=== PATIENT | male | born 1985 ===

== ENCOUNTER 2016-10-16 18:51 | Emergency (ER) | payer OTHER ==
[2016-10-16 19:31] VITALS: BP 133/73; PULSE 64; RESP 18; TEMP 96.6; O2SAT 99
[2016-10-16] MEDS ORDERED: DiphenhydrAMINE 50 mg/ml Inj IVP STA (19:51)
[2016-10-16] MEDS ORDERED: Sodium Chloride 0.9% 500 ML IV ONE (19:52)
--- NOTE | 2016-10-16 19:56 | ED PDOC ---
HPI: Headache Time Seen by Provider: 10/16/16 19:32 Chief Complaint (Nursing): Headache History Per: Patient History/Exam Limitations: no limitations Onset/Duration Of Symptoms: Gradual (today) Current Symptoms Are (Timing): Still Present Severity: Moderate Front/Back Head: 1 - frontal Quality: Dull Preceeding Symptoms: Known Migraine Symptoms Associated Symptoms: Nausea. denies: Photophobia, Blurred Vision, Vomiting, Extremity Weakness Additional History Per: Patient Additional Complaint(s): Patient had dizziness episode and lost balance today. Patient sent by [facility] for [facility]. patient has hx of stroke. Stroke discovered on MRI this year when being evaluated for headaches. pt took excedrin at 1300. Patient had botox tx for migraines 4 weeks ago. similar to migraines in the past. no head trauma. no f/c/ cp/sob or neck pain Past Medical History Reviewed: Historical Data, Nursing Documentation, Vital Signs Vital Signs: Last Vital Signs Temp 96.6 F L 10/16/16 19:27 Pulse 64 10/16/16 19:27 Resp 18 10/16/16 19:27 BP 133/73 10/16/16 19:27 Pulse Ox 99 10/16/16 19:27 - Medical History PMH: Anxiety, Migraine, TIA - Surgical History Surgical History: Appendectomy - Family History Family History: States: Unknown Family Hx - Living Arrangements Living Arrangements: With Family - Social History Drugs: Denies - Home Medications Home Medications: Ambulatory Orders Medication Instructions Recorded Cyclobenzaprine HCl [Flexeril] 10 mg PO Q8 #20 tab 10/31/14 Naproxen [Naprosyn] 500 mg PO BID #20 tab 10/31/14 - Allergies Allergies/Adverse Reactions: Allergies Allergy/AdvReac Type Severity Reaction Status Date / Time No Known Allergies Allergy Verified 10/31/14 13:51 Review of Systems ROS Statement: Except As Marked, All Systems Reviewed And Found Negative Constitutional: Negative for: Fever, Chills Eyes: Negative for: Vision Change, Conjunctivae Inflammation, Eyelid Inflammation Cardiovascular: Negative for: Chest Pain, Palpitations Respiratory: Negative for: Cough, Shortness of Breath Gastrointestinal: Negative for: Nausea, Vomiting, Abdominal Pain Musculoskeletal: Negative for: Neck Pain Skin: Negative for: Rash Neurological: Positive for: Headache. Negative for: Weakness, Numbness, Confusion, Seizures, Altered Mental Status, Dizziness Physical Exam - Reviewed Nursing Documentation Reviewed: Yes Vital Signs Reviewed: Yes - Physical Exam Appears: Positive for: No Acute Distress, Uncomfortable Head Exam: Positive for: ATRAUMATIC, NORMAL INSPECTION, NORMOCEPHALIC Eye Exam: Positive for: Normal appearance, EOMI, PERRL. Negative for: Nystagmus , Periorbital swelling, Periorbital tenderness, Conjunctival injection, Scleral icterus Neck: Positive for: Normal, Painless ROM, Supple Cardiovascular/Chest: Positive for: Regular Rate, Rhythm. Negative for: Chest Non Tender, Edema, Gallop, Murmur, Bradycardia, Tachycardia Respiratory: Positive for: Normal Breath Sounds. Negative for: Decreased Breath Sounds, Accessory Muscle Use, Crackles, Rales, Rhonchi, Stridor, Wheezing Gastrointestinal/Abdominal: Positive for: Normal Exam, Bowel Sounds, Soft. Negative for: Tenderness Back: Positive for: Normal Inspection. 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 Negative for: Motor/Sensory Deficits, Cerebellar Tests , Aphasia, Facial Droop - Laboratory Results Result Diagrams: 10/16/16 20:23 10/16/16 20:23 - ECG O2 Sat by Pulse Oximetry: 99 Pulse Ox Interpretation: Normal - Progress ED Course And Treament: ct head neg. sx markedly improved. advise close f/u with pmd. all of pt's questions were answered and pt agree's with plan. Re-evaluation Time: 22:04 Condition: Improved Disposition - Clinical Impression Clinical Impression: Migraine Counseled Patient/Family Regarding: Studies Performed, Diagnosis, Need For Followup - Disposition Disposition: Routine/Home Disposition Time: 22:05 Condition: GOOD Instructions: Migraine Headache (ED) Forms: [facility] ED School/Work Excuse
[2016-10-16] MEDS ORDERED: DiphenhydrAMINE 50 mg/ml Inj ONE (20:00)
[2016-10-16 20:33] LABS: BASO % 0.2 % (0.0-2.0); EOS # 0.1 K/uL (0.0-0.7); EOS % 0.8 % (0.0-4.0); HEMATOCRIT 40.5 % (35.0-51.0); LYMPH # 3.5 K/uL (1.0-4.3); LYMPH % 36.1 % (20.0-40.0); MEAN CELL VOLUME 85.7 fl (80.0-94.0); MEAN CORPUSCULAR HEMOGLOBIN 28.5 pg (27.0-31.0); MEAN CORPUSCULAR HGB CONC 33.3 g/dL (33.0-37.0); MONO # 0.8 K/uL (0.0-0.8); MONO % 8.7 % (0.0-10.0); NEUT # 5.3 K/uL (1.8-7.0); NEUT % 54.2 % (50.0-75.0); RED CELL DISTRIBUTION WIDTH 13.2 % (11.5-14.5); WHITE BLOOD COUNT 9.7 K/uL (4.8-10.8)
[2016-10-16 20:54] LABS: PARTIAL THROMBOPLASTIN TIME 27.5 SECONDS (23.3-32.5)
[2016-10-16 21:02] LABS: ALB/GLOB RATIO 1.3 (1.0-2.1); ALKALINE PHOSPHATASE 94 U/L (38-126); ALT/SGPT 34 U/L (21-72); AST/SGOT 29 U/L (17-59); BILIRUBIN,TOTAL 0.5 mg/dl (0.2-1.3); BLOOD UREA NITROGEN 15 mg/dl (9-20); CALCIUM 9.8 mg/dL (8.4-10.2); CARBON DIOXIDE 26 mmol/L (22-30); CHLORIDE 101 mmol/L (98-107); GFR AFRICAN-AMERICAN > 60; GLUCOSE,RANDOM 93 mg/dL (75-110); POTASSIUM 4.1 MMOL/L (3.6-5.0); SODIUM 144 mmol/l (132-148); TOTAL PROTEIN 8.3 G/DL (6.3-8.2)
--- NOTE | 2016-10-17 08:27 | CT ---
PROCEDURE: CT HEAD WITHOUT CONTRAST. HISTORY: Headache COMPARISON: 06/08/2010 TECHNIQUE: Axial computed tomography images were obtained through the head/brain without intravenous contrast. Radiation dose: Total exam DLP = 871.23 mGy-cm. This CT exam was performed using one or more of the following dose reduction techniques: Automated exposure control, adjustment of the mA and/or kV according to patient size, and/or use of iterative reconstruction technique. FINDINGS: HEMORRHAGE: No intracranial hemorrhage. BRAIN: There is no mass, mass effect or abnormal extra-axial fluid collection. There is no territorial infarction. VENTRICLES: There is mild global parenchymal volume loss with frontal predominance, advanced for the patient's age and proportionate enlargement of the ventricles and cortical sulci. CALVARIUM: The skull base and calvarium are normal PARANASAL SINUSES: Predominantly clear. MASTOID AIR CELLS: Predominantly clear. OTHER FINDINGS: None. IMPRESSION: No acute intracranial abnormality. Mild global parenchymal volume loss with frontal predominance, advanced for the patient's age. A preliminary report was provided by [email or web address].
== END 2016-10-16 22:21 | disposition home or self-care (01) ==
LOC: H.ER 18:51
DX: G43.909 Migraine, unspecified, not intractable, without status migrainosus (principal); Z86.73 Personal history of transient ischemic attack (TIA), and cerebral infarction without residual deficits

== ENCOUNTER 2017-10-28 08:30 | Observation (INO) | payer MEDICAID, OTHER ==
[2017-10-28] MEDS ORDERED: Sodium Chloride 0.9% 1,000 ML IV STA (09:38)
--- NOTE | 2017-10-28 09:45 | ED PDOC ---
HPI: Headache Time Seen by Provider: 10/28/17 09:23 Chief Complaint (Nursing): Headache Chief Complaint (Provider): Headache History Per: Patient History/Exam Limitations: no limitations Onset/Duration Of Symptoms: Days (x 3) Current Symptoms Are (Timing): Still Present Additional History Per: Prior Records Additional Complaint(s): 32-year-old male, with a history of migraines and a minor stroke, presents to ED with migraine that started 3 days ago. Patient states migraine worsens last night. Feels "extra pounding" on his right side of his head. States light bothers him. Reports vomiting all night. Reports taking excedrin. PMD: No PMD Neurologist: ? (in the city) Past Medical History Reviewed: Historical Data, Nursing Documentation, Vital Signs Vital Signs: Last Vital Signs Temp 98.6 F 10/28/17 08:51 Pulse 84 10/28/17 08:51 Resp 20 10/28/17 08:51 BP 117/78 10/28/17 08:51 Pulse Ox 97 10/28/17 08:51 - Medical History PMH: Anxiety, Migraine, TIA Other PMH: Minor stroke, meningitis - Surgical History Surgical History: Appendectomy - Family History Family History: States: Unknown Family Hx - Social History Current smoker - smoking cessation education provided: No Alcohol: None Drugs: Denies - Home Medications Home Medications: Ambulatory Orders Medication Instructions Recorded Naproxen [Naprosyn] 500 mg PO BID PRN #15 tablet 10/28/17 Ondansetron [Zofran Odt] 4 mg PO Q8H PRN #15 odt 10/28/17 - Allergies Allergies/Adverse Reactions: Allergies Allergy/AdvReac Type Severity Reaction Status Date / Time No Known Allergies Allergy Verified 10/28/17 08:49 Review of Systems ROS Statement: Except As Marked, All Systems Reviewed And Found Negative ENT: Positive for: Other (Photophobia) Gastrointestinal: Positive for: Vomiting Neurological: Positive for: Other (Migraine) Physical Exam - Reviewed Nursing Documentation Reviewed: Yes Vital Signs Reviewed: Yes - Physical Exam Head Exam: Positive for: ATRAUMATIC, NORMAL INSPECTION, NORMOCEPHALIC Eye Exam: Positive for: Normal appearance, EOMI, PERRL Cardiovascular/Chest: Positive for: Regular Rate, Rhythm Respiratory: Positive for: Normal Breath Sounds. Negative for: Respiratory Distress Neurologic/Psych: Positive for: Alert, Oriented (x 3). Negative for: Aphasia, Facial Droop - ECG O2 Sat by Pulse Oximetry: 97 (RA) Pulse Ox Interpretation: Normal - Progress ED Course And Treament: Pt administered multiple medications, PERSON unchanged. Re-evaluation Time: 16:48 Condition: Unchanged - Physician Consult Information Time Consulting Physican Contacted: 16:49 Physician Contacted: Errol Wayne Outcome Of Conversation: Recommends MgSO4 2 g IV, Decadron 10 mg IV and Depakote [address] Frazier to consult. Medical Decision Making Medical Decision Making: Prior records reviewed. Patient had a CT Head on October 17, 2016 where it shows no acute intracranial abnormalities Time: 09:37 Plan: - Morphine 2 mg IVP - Sodium Chloride 0.9% 1,000 ml IV 1,000 mls/hr - Toradol 15 mg IVP - Zofran 4 mg IVP 12:24 Patient has headache again as per RN Time: 12:54 Phenergan Inj 25 mg Sodium Chloride 0.9% 100 ml IV Time: 14:25 Benadryl 25 mg IVP Time: 16:[address] Wayne. Scribe Attestation: Documented by Harsha Larose, acting as a scribe for Sarah Vo MD Provider Scribe Attestation: All medical record entries made by the Scribe were at my direction and personally dictated by me. I have reviewed the chart and agree that the record accurately reflects my personal performance of the history, physical exam, medical decision making, and the department course for this patient. I have also personally directed, reviewed, and agree with the discharge instructions and disposition. Disposition - Clinical Impression Clinical Impression: Migraine - Patient ED Disposition Is Patient to be Admitted: Yes Discussed With DrArthur: Nina Ye Doctor Will See Patient In The: Hospital - Disposition Referrals: [facility] [Outside] Disposition Time: 16:50 Condition: IMPROVED Prescriptions: Naproxen [Naprosyn] 500 mg PO BID PRN #15 tablet PRN Reason: Pain, Moderate (4-7) Ondansetron [Zofran Odt] 4 mg PO Q8H PRN #15 odt PRN Reason: Nausea/Vomiting Instructions: Migraine Headache (DC) Forms: [facility] (Azeri) Print Language: KITTITIAN - Pt Status Changed To: Hospital Disposition Of: Observation
[2017-10-28] MEDS ORDERED: Promethazine 25 MG in Sodium Chloride 0.9% 100 ML IV ONE (13:00)
[2017-10-28] MEDS ORDERED: DiphenhydrAMINE 50 mg/ml Inj IVP STA (14:25)
[2017-10-28] MEDS ORDERED: Dexamethasone 10 MG in Sodium Chloride 0.9% 50 ML IV STA (16:47)
[2017-10-28] MEDS ORDERED: Magnesium Sulfate 2 gm/50 ml 2 GM/50 ML BAG IVPB ONE (17:00)
[2017-10-28] MEDS ORDERED: Valproate 500 MG in Sodium Chloride 0.9% 100 ML IVPB ONE (17:00)
--- NOTE | 2017-10-28 19:00 | CP.PCM.HP ---
History of Present Illness - History of Present Illness History of Present Illness: 32 yo ,m, PMhx/o Migraine x 3 years , Minor stroke 2 years ago , Anxiety, Meningitis in 2010 presents to ED c/o right side headache started 3 days ago, intermittent, pounding, constant since last night, radiated to frontal region, 6/10 intensity, associated with photophobia, phonophobia, nausea and 5-6 nonbloddy vomiting last night. Headache partially alleviated with exedrin ( took 13 tab yesterday), aggravated by moving his head when looking to the floor. Reports subjective fever at home 2 days ago, relieved with exedrin. Denies aura, fall, head trauma, cough, SOB, sinus TD, chest pain, confusion, dizziness, seizure activity, weakness, numbness, confusion, weight loss, blurry vision . Denies this headache as the worse of his life. Patient reports episodes of migraine 3-4 times/month. Last event 2 weeks ago. Reports this episode of migraine is different en location and associated with vomiting. Reports usual episode of migraine are frontal and associated with nausea w/o vomiting. Patient seen by Neurologist 5 months ago and had treatment with botox and has been taking a blue color pill( does not remember the name) . PMD: No PMD Neurologist: Dr Vargas Psycologist: Dr Rowe PMHX: Migraine x 3 years , Minor stroke 2 years ago , Anxiety, Meningitis in 2010 Allergies: NKDA Meds: Exedrin Migraine PRN , Alprazolan 0.5 mg Q 12h, Ambien 5 mg HS PSurgHx: Appendectomy Fhx: Father colon issues. Mother DM. No Fhx/o migraine. PShx: Etoh occs, no rect drugs, cig Code status: full code ED Course VS: normal PE: normal Labs: not done Imaging: not done Meds: Morhine 2 mg IV, NS 1L , toradol 15 mg IV, Zofran 4m g IV Consulted with Dr Wayne Recommends: MgSO4 2g IV, Decadron 10 mg IV, Depakote 500 mg IV Present on Admission - Present on Admission Any Indicators Present on Admission: No History of DVT/PE: No History of Uncontrolled Diabetes: No Review of Systems - Review of Systems All systems: reviewed and no additional remarkable complaints except - EENT Eyes: Photophobia Nose/Mouth/Throat: absent: Nasal Congestion, Nasal Discharge - Cardiovascular Cardiovascular: As Per HPI - Respiratory Respiratory: As Per HPI - Neurological Neurological: Headaches Past Patient History - Past Social History Alcohol: None Drugs: Denies - NEUROLOGICAL Hx Neurological Disorder: Yes (migraines, tias) - PSYCHIATRIC Hx Anxiety: Yes - SURGICAL HISTORY Hx Appendectomy: Yes - ANESTHESIA Hx Anesthesia: No Meds Home Medications: Home Medication List Medication Instructions Recorded Confirmed Type Naproxen [Naprosyn] 500 mg PO BID PRN #15 tablet 10/28/17 Rx Ondansetron [Zofran Odt] 4 mg PO Q8H PRN #15 odt 10/28/17 Rx Allergies/Adverse Reactions: Allergies Allergy/AdvReac Type Severity Reaction Status Date / Time No Known Allergies Allergy Verified 10/28/17 08:49 Physical Exam - Constitutional Appears: Non-toxic, No Acute Distress - Head Exam Head Exam: ATRAUMATIC, NORMAL INSPECTION, NORMOCEPHALIC - Eye Exam Eye Exam: EOMI, PERRL. absent: Conjunctival injection, Nystagmus, Periorbital swelling, Periorbital tenderness Additional comments: right side fading iris coloration since patient was born fundoscopy normal - ENT Exam ENT Exam: Mucous Membranes Moist - Neck Exam Neck exam: Positive for: Full Rom, Normal Inspection. Negative for: Lymphadenopathy, Meningismus, Tenderness - Respiratory Exam Respiratory Exam: Clear to Auscultation Bilateral. absent: Rales, Rhonchi, Wheezes - Cardiovascular Exam Cardiovascular Exam: REGULAR RHYTHM, +S1, +S2 - GI/Abdominal Exam GI & Abdominal Exam: Normal Bowel Sounds, Soft. absent: Guarding, Rebound, Tenderness - Extremities Exam Extremities exam: Positive for: normal inspection. Negative for: pedal edema - Neurological Exam Neurological exam: Alert, CN II-XII Intact, Oriented x3, Reflexes Normal - Expanded Neurological Exam Expanded Patient oriented to: person, place, time Speech: Fluid Speech Cranial nerves: EOM's Intact: Normal, Tongue Deviation: Normal Neuro motor strength exam: Left Upper Extremity: 5, Right Upper Extremity: 5, Left Lower Extremity: 5, Right Lower Extremity: 5 - Psychiatric Exam Psychiatric exam: Normal Affect, Normal Mood - Skin Skin Exam: Intact, Normal Color Results - Vital Signs Recent Vital Signs: Last Vital Signs Temp 98.6 F 10/28/17 18:20 Pulse 84 10/28/17 18:20 Resp 20 10/28/17 18:20 BP 117/78 10/28/17 18:20 Pulse Ox 97 10/28/17 16:58 - Labs Result Diagrams: 10/29/17 00:20 Assessment & Plan - Assessment and Plan (Free Text) Plan: 32 yo ,m, PMhx/o Migraine x 3 years , Minor stroke 2 years ago , Anxiety, Meningitis in 2010 admitted for observation for intractable migraine Assessment/Plan 1 Headache,chronic migraine without aura, intractable -Ct head 10/2016: no intracranial hemorrhage. Mild global parenchymal volume loss with frontal predominance, advanced for the patients age. -Patient neurologic intact. -if persistent migraine, AMS, fever will imaging -Neurologist consulted in ED: recommended MgSO4 2g IV, Decadron 10 mg IV, Depakote 500 mg IV -Neurologist consult suggested Dr Frazier 2) Minor Stroke -reported by patient 2 years ago .denied neurologic symptoms on presentation -finding by MRI -no MRI results in [facility] 3) Anxiety -controlled -c/w home medications 4) DVT prophylaxis -SCD
--- NOTE | 2017-10-29 00:41 | CP.PCM.PCO ---
Addendum Addendum: 10/29/17 00:38 I am notified for the nurse that patient is febrile 100.6 Patient examined bedside. Reports headache now 10.reports photophobia. denies nausea or vomiting, no neck stiffness Tylenol given for fever PE: no meningeal signs. but photophobia present Plan CBC, CMP, Lactic acid, blood culture CT head w/o contrast -To discuss whit hospitalist after labs results and CT head 10/29/17 00:48 10/29/17 02:11 Lab results back CBC: WBC 13.6 with lef shift deviation. UA normal CT head w/o contrast no intracraneal bleeding, brain atrophy(chronic) Case discussed with Dr Hermosillo. Patient stable, no meningeal signs. Will f/u CBC . no LP at this moment
[2017-10-29 01:41] LABS: HEMOGLOBIN 12.6 g/dL (12.0-18.0); LYMPH % 7.6 % (20.0-40.0); MEAN CELL VOLUME 86.9 fl (80.0-94.0); MEAN CORPUSCULAR HEMOGLOBIN 28.5 pg (27.0-31.0); MEAN CORPUSCULAR HGB CONC 32.8 g/dL (33.0-37.0); MEAN PLATELET VOLUME 10.3 fl (7.2-11.7); MONO # 0.1 K/uL (0.0-0.8); NEUT # 12.4 K/uL (1.8-7.0); NEUT % 91.4 % (50.0-75.0); PLATELET COUNT 223 K/uL (130-400); RBC 4.43 Mil/uL (4.40-5.90); RED CELL DISTRIBUTION WIDTH 13.5 % (11.5-14.5); WHITE BLOOD COUNT 13.6 K/uL (4.8-10.8)
[2017-10-29 01:44] LABS: ALB/GLOB RATIO 1.1 (1.0-2.1); ALBUMIN 4.2 g/dL (3.5-5.0); ALT/SGPT 49 U/L (21-72); AST/SGOT 24 U/L (17-59); BLOOD UREA NITROGEN 13 mg/dl (9-20); CALCIUM 9.1 mg/dL (8.4-10.2); GFR AFRICAN-AMERICAN > 60; GFR NON-AFRICAN AMERICAN > 60
[2017-10-29 01:46] LABS: URINE BILIRUBIN NEGATIVE (NEGATIVE); URINE BLOOD NEGATIVE (NEGATIVE); URINE CLARITY CLEAR (Clear); URINE COLOR STRAW (YELLOW); URINE GLUCOSE (UA) >=500 mg/dL (Normal); URINE LEUKOCYTE ESTERASE NEG Leu/uL (Negative); URINE PROTEIN NEGATIVE (NEGATIVE); URINE UROBILINOGEN 0.2-1.0 mg/dL (0.2-1.0)
--- NOTE | 2017-10-29 01:48 | CT ---
EXAM: CT Head Without Intravenous Contrast CLINICAL HISTORY: 32 years old, male; Condition or disease; Headache and other: Fever; Headache not specified; Patient HX: See phys doc; Additional info: Headache. Fever TECHNIQUE: Axial computed tomography images of the head/brain without intravenous contrast. All CT scans at this facility use one or more dose reduction techniques, viz.: automated exposure control; ma/kV adjustment per patient size (including targeted exams where dose is matched to indication; i.e. head); or iterative reconstruction technique. Coronal and sagittal reformatted images were created and reviewed. COMPARISON: CT - HEAD W/O CONTRAST 2016-10-16 21:10 FINDINGS: Brain: Mild atrophy. No intracranial hemorrhage. No mass. No definite edema. Ventricles: No hydrocephalus. Bones/joints: No acute fracture. Soft tissues: Unremarkable. Sinuses: No acute sinusitis. Mastoid air cells: No mastoid effusion. Orbits: Unremarkable as visualized. IMPRESSION: 1. No definite acute intracranial abnormality. 2. Incidental/non-acute findings are described above.
[2017-10-29 02:33] LABS: BANDS 1 % (0-2); LYMPHOCYTE 13 % (20-50); MONOCYTE 0 % (0-10); NEUTROPHIL 86 % (42-75); TOTAL CELLS COUNTED 100
[2017-10-29 02:36] LABS: PLATELET ESTIMATE NORMAL (NORMAL)
[2017-10-29 02:37] LABS: ANISOCYTOSIS SLIGHT; HYPOCHROMIC SLIGHT
[2017-10-29] MEDS: Magnesium Oxide 400 mg Tab UD PO SCH (09:09)
--- NOTE | 2017-10-29 10:10 | CP.PCM.PN ---
Subjective - Date & Time of Evaluation Date of Evaluation: 10/29/17 Time of Evaluation: 07:50 - Subjective Subjective: Pt seen and examined at bedside this am. Reports fever overnight. Reports continued R sided headaches 12/22. Denies vomiting. Reports photophobia. Denies CP/SOB. Objective - Vital Signs/Intake and Output Vital Signs (last 24 hours): Temp Pulse Resp BP Pulse Ox 98.7 F 65 18 107/62 99 10/29/17 08:12 10/29/17 08:12 10/29/17 08:12 10/29/17 08:12 10/29/17 08:12 - Medications Medications: Current Medications Acetaminophen (Tylenol 325mg Tab) 650 mg PO Q6 PRN PRN Reason: Pain, Mild (1-3) Alprazolam (Xanax) 0.5 mg PO Q12 PRN PRN Reason: Anxiety Ketorolac Tromethamine (Toradol) 15 mg IVP Q6 PRN PRN Reason: Pain, moderate (4-7) Magnesium Oxide (Mag-Ox) 400 mg PO DAILY SARAH Last Admin: 10/29/17 09:09 Dose: 400 mg Metoclopramide HCl (Reglan) 10 mg IVP Q8 PRN PRN Reason: Nausea/Vomiting Morphine Sulfate (Morphine) 2 mg IVP Q4 PRN PRN Reason: Pain, severe (8-10) Last Admin: 10/28/17 23:17 Dose: 2 mg Zolpidem Tartrate (Ambien) 5 mg PO HS PRN PRN Reason: Insomnia Last Admin: 10/28/17 22:40 Dose: 5 mg - Labs Labs: 10/29/17 00:20 10/29/17 00:20 - Head Exam Additional comments: R sided fronto-temporal headaches, with photophobia, nausea - Eye Exam Eye Exam: EOMI - Neck Exam Neck Exam: Full ROM - Respiratory Exam Respiratory Exam: Clear to Ausculation Bilateral, NORMAL BREATHING PATTERN. absent: Wheezes - Cardiovascular Exam Cardiovascular Exam: REGULAR RHYTHM, +S1, +S2 - GI/Abdominal Exam GI & Abdominal Exam: Soft, Normal Bowel Sounds. absent: Tenderness - Extremities Exam Extremities Exam: absent: Calf Tenderness - Neurological Exam Neurological Exam: Alert, Awake, CN II-XII Intact, Oriented x3 Additional comments: Kernig, and brudzenki's signs negative. - Psychiatric Exam Psychiatric exam: Normal Affect, Normal Mood Assessment and Plan - Assessment and Plan (Free Text) Plan: 32 yo M PMhx/o Migraine x 3 years, Minor stroke 2 years ago, Anxiety, Meningitis in 2010 admitted for observation for intractable migraine Plan Headache,chronic migraine without aura, intractable -Ct head 10/2016: no intracranial hemorrhage. Mild global parenchymal volume loss with frontal predominance, advanced for the patients age. -CT head w/o 10/29/2017: no intracranial bleed, brain atrophy -Patient neurologically intact: keeley/azalia both negative -Neurologist consulted Dr Frazier: recommendations appreciated : MgSO4 2g IV, Decadron 10 mg IV, Depakote 500 mg IV -lactic acid: 2.4 -f/u repeat UA: pending -Topamax -f/u vs Minor Stroke -reported by patient 2 years ago .denied neurologic symptoms on presentation -finding by MRI, however, no MRI results in [facility] Anxiety -controlled -c/w home medications DVT prophylaxis -SCD -encourage ambulation
--- NOTE | 2017-10-29 12:08 | RAD ---
PROCEDURE: CHEST RADIOGRAPH, 1 VIEW HISTORY: headache.fever COMPARISON: None available. FINDINGS: LUNGS: Clear. PLEURA: No pneumothorax or pleural fluid seen. CARDIOVASCULAR: Normal. OSSEOUS STRUCTURES: No significant abnormalities. VISUALIZED UPPER ABDOMEN: Normal. OTHER FINDINGS: None. IMPRESSION: No active disease.
--- NOTE | 2017-10-29 15:55 | CP.PCM.CON ---
History of Present Illness - History of Present Illness History of Present Illness: 32 yr old male who has a history of migraine, and is now admitted for refractory migraine. has a history of migraine for over 3 years, and had a stroke 2 years ago, with pmh of meningitis in 2010. The patient presented to the Er with several day onset of right sided headache, intermittent , 9/10, frontal with photophobia, phonophobia, nausea and vomiting. He took 13 tabs yesterday, and there was no relief. Frequency of migraine is 4 times a month, and last one was simliar 2 weeks ago. He had botox done about 5 months ago, and says he feels some relief with this treatment. Its not clear if he has taken depakote, ellavil, nortryptilline or topamax. Triggers: not known. PMD: No PMD Neurologist: Dr Vargas Psycologist: Dr Rowe PMHX: Migraine x 3 years , Minor stroke 2 years ago , Anxiety, Meningitis in 2010 Allergies: NKDA Meds: Exedrin Migraine PRN , Alprazolan 0.5 mg Q 12h, Ambien 5 mg HS PSurgHx: Appendectomy Fhx: Father colon issues. Mother DM. No Fhx/o migraine. PShx: Etoh occs, no rect drugs, cig On exam: normal neurological exam. Past Patient History - Past Medical History & Family History Past Medical History?: Yes - Past Social History Alcohol: None Drugs: Denies - CARDIAC Hx Cardiac Disorders: No - PULMONARY Hx Respiratory Disorders: No - NEUROLOGICAL Hx Neurological Disorder: Yes (migraines, tias) - HEENT Hx HEENT Problems: No - RENAL Hx Chronic Kidney Disease: No - ENDOCRINE/METABOLIC Hx Endocrine Disorders: No - HEMATOLOGICAL/ONCOLOGICAL Hx Blood Disorders: No - INTEGUMENTARY Hx Dermatological Problems: No - MUSCULOSKELETAL/RHEUMATOLOGICAL Hx Musculoskeletal Disorders: No Hx Falls: No - GASTROINTESTINAL Hx Gastrointestinal Disorders: No - GENITOURINARY/GYNECOLOGICAL Hx Genitourinary Disorders: No - PSYCHIATRIC Hx Anxiety: Yes - SURGICAL HISTORY Hx Appendectomy: Yes - ANESTHESIA Hx Anesthesia: No Meds Home Medications: Home Medication List Medication Instructions Recorded Confirmed Type Naproxen [Naprosyn] 500 mg PO BID PRN #15 tablet 10/28/17 Rx Ondansetron [Zofran Odt] 4 mg PO Q8H PRN #15 odt 10/28/17 Rx Allergies/Adverse Reactions: Allergies Allergy/AdvReac Type Severity Reaction Status Date / Time No Known Allergies Allergy Verified 10/28/17 08:49 - Medications Medications: Current Medications Acetaminophen (Tylenol 325mg Tab) 650 mg PO Q6 PRN PRN Reason: Pain, Mild (1-3) Alprazolam (Xanax) 0.5 mg PO Q12 PRN PRN Reason: Anxiety Ketorolac Tromethamine (Toradol) 15 mg IVP Q6 PRN PRN Reason: Pain, moderate (4-7) Last Admin: 10/29/17 10:27 Dose: 15 mg Magnesium Oxide (Mag-Ox) 400 mg PO DAILY [facility] Last Admin: 10/29/17 09:09 Dose: 400 mg Metoclopramide HCl (Reglan) 10 mg IVP Q8 PRN PRN Reason: Nausea/Vomiting Morphine Sulfate (Morphine) 2 mg IVP Q4 PRN PRN Reason: Pain, severe (8-10) Last Admin: 10/28/17 23:17 Dose: 2 mg Topiramate (Topamax) 25 mg PO DAILY [facility] Last Admin: 10/29/17 14:32 Dose: 25 mg Zolpidem Tartrate (Ambien) 5 mg PO HS PRN PRN Reason: Insomnia Last Admin: 10/28/17 22:40 Dose: 5 mg Results - Vital Signs Recent Vital Signs: Last Vital Signs Temp 98.7 F 10/29/17 08:12 Pulse 65 10/29/17 08:12 Resp 18 10/29/17 08:12 BP 107/62 10/29/17 08:12 Pulse Ox 99 10/29/17 08:12 - Labs Result Diagrams: 10/29/17 00:20 10/29/17 00:20 Labs: Laboratory Results - last 24 hr 10/29/17 10/29/17 10/29/17 00:20 00:20 01:40 WBC 13.6 H RBC 4.43 Hgb 12.6 Hct 38.5 MCV 86.9 MCH 28.5 MCHC 32.8 L RDW 13.5 Plt Count 223 MPV 10.3 Neut % (Auto) 91.4 H Lymph % (Auto) 7.6 L Door % (Auto) 1.0 Eos % (Auto) 0.0 Baso % (Auto) 0.0 Neut # (Auto) 12.4 H Lymph # (Auto) 1.0 [place] # (Auto) 0.1 Eos # (Auto) 0.0 Baso # (Auto) 0.0 Neutrophils % (Manual) 86 H Band Neutrophils % 1 Lymphocytes % (Manual) 13 L Monocytes % (Manual) 0 Platelet Estimate Normal Hypochromasia (manual) Slight Anisocytosis (manual) Slight Sodium 139 Potassium 4.0 Chloride 99 Carbon Dioxide 22 Anion Gap 22 H BUN 13 Creatinine 0.8 Est GFR ( Amer) > 60 Est GFR (Non-Af Amer) > 60 Random Glucose 174 H Lactic Acid Calcium 9.1 Total Bilirubin 0.4 AST 24 ALT 49 Alkaline Phosphatase 64 Total Protein 7.9 Albumin 4.2 Globulin 3.7 Albumin/Globulin Ratio 1.1 Urine Color Straw Urine Clarity Clear Urine pH 6.0 Ur Specific [place] 1.010 Urine Protein Negative Urine Glucose (UA) >=500 Urine Ketones Negative Urine Blood Negative Urine Nitrate Negative Urine Bilirubin Negative Urine Urobilinogen 0.2-1.0 Ur Leukocyte Esterase Neg Urine RBC (Auto) 1 Urine Microscopic WBC 1 10/29/17 03:13 WBC RBC Hgb Hct MCV MCH MCHC RDW Plt Count MPV Neut % (Auto) Lymph % (Auto) Door % (Auto) Eos % (Auto) Baso % (Auto) Neut # (Auto) Lymph # (Auto) Door # (Auto) Eos # (Auto) Baso # (Auto) Neutrophils % (Manual) Band Neutrophils % Lymphocytes % (Manual) Monocytes % (Manual) Platelet Estimate Hypochromasia (manual) Anisocytosis (manual) Sodium Potassium Chloride Carbon Dioxide Anion Gap BUN Creatinine Est GFR ( Amer) Est GFR (Non-Af Amer) Random Glucose Lactic Acid 2.4 H Calcium Total Bilirubin AST ALT Alkaline Phosphatase Total Protein Albumin Globulin Albumin/Globulin Ratio Urine Color Urine Clarity Urine pH Ur Specific [place] Urine Protein Urine Glucose (UA) Urine Ketones Urine Blood Urine Nitrate Urine Bilirubin Urine Urobilinogen Ur Leukocyte Esterase Urine RBC (Auto) Urine Microscopic WBC Assessment & Plan - Assessment and Plan (Free Text) Assessment: 32 yr old male with refractory migraine with aura. He has tried botox with some relief but would truly benefit from daily prophylactic treatment. I will recommend topamax 100 mg bid, along with magnsesium 200 mg bid, vitamin B6 daily, and continuing botox treatments. For inpatietn therapy, depakote 1000 mg iv now and 750 mg bid would be helpful with benadryl, toradol and nsaids. Plan: 1. Depakote 1000 mg now 2. Increase topamax to 100 mg bid 3. Benadryl 50 mg daily 4. MRI Brain with and withotu contrast 5. Magnesium 200 mg bid. 6. pyridoxine daily Thank you for this consult. Dr. Freddie Md, DPN
[2017-10-29] MEDS ORDERED: Valproate 1,000 MG in Sodium Chloride 0.9% 100 ML IVPB ONE (18:55)
[2017-10-29] MEDS ORDERED: Gadodiamide 287 MG/ML VIAL (15ML) IV ONE (18:56)
[2017-10-30 06:47] LABS: HEMOGLOBIN 12.2 g/dL (12.0-18.0); MEAN CELL VOLUME 87.3 fl (80.0-94.0); MEAN CORPUSCULAR HEMOGLOBIN 29.1 pg (27.0-31.0); MEAN CORPUSCULAR HGB CONC 33.3 g/dL (33.0-37.0); RBC 4.19 Mil/uL (4.40-5.90); RED CELL DISTRIBUTION WIDTH 13.8 % (11.5-14.5); WHITE BLOOD COUNT 9.6 K/uL (4.8-10.8)
[2017-10-30 07:06] LABS: BLOOD UREA NITROGEN 15 mg/dl (9-20); GFR AFRICAN-AMERICAN > 60; GFR NON-AFRICAN AMERICAN > 60
[2017-10-30 07:18] LABS: URINE BILIRUBIN NEGATIVE (NEGATIVE); URINE BLOOD NEGATIVE (NEGATIVE); URINE CLARITY CLEAR (Clear); URINE COLOR YELLOW (YELLOW); URINE GLUCOSE (UA) 50 mg/dL (Normal); URINE LEUKOCYTE ESTERASE NEG Leu/uL (Negative); URINE PROTEIN NEGATIVE (NEGATIVE); URINE UROBILINOGEN 0.2-1.0 mg/dL (0.2-1.0)
[2017-10-30 08:31] VITALS: RESP 18
[2017-10-30] MEDS ORDERED: Valproate 750 MG in Sodium Chloride 0.9% 100 ML IVPB SCH (09:00)
[2017-10-30] MEDS: Magnesium Oxide 400 mg Tab UD PO SCH (09:16)
--- NOTE | 2017-10-30 09:30 | CP.PCM.DIS ---
Provider - Provider Date of Admission: 10/28/17 16:50 Attending physician: Nina Ye MD Time Spent in preparation of Discharge (in minutes): 20 Hospital Course - Lab Results Lab Results: Micro Results 10/29/17 01:43 Urine Urine Culture - Final Gram Negative [place] 10/29/17 00:20 Blood Blood Culture - Preliminary NO GROWTH AFTER 24 HOURS Most Recent Lab Values WBC 9.6 K/uL (4.8-10.8) 10/30/17 06:25 RBC 4.19 Mil/uL (4.40-5.90) L 10/30/17 06:25 Hgb 12.2 g/dL (12.0-18.0) 10/30/17 06:25 Hct 36.6 % (35.0-51.0) 10/30/17 06:25 MCV 87.3 fl (80.0-94.0) 10/30/17 06:25 MCH 29.1 pg (27.0-31.0) 10/30/17 06:25 MCHC 33.3 g/dL (33.0-37.0) 10/30/17 06:25 RDW 13.8 % (11.5-14.5) 10/30/17 06:25 Plt Count 197 K/uL (130-400) 10/30/17 06:25 MPV 10.3 fl (7.2-11.7) 10/29/17 00:20 Neut % (Auto) 91.4 % (50.0-75.0) H 10/29/17 00:20 Lymph % (Auto) 7.6 % (20.0-40.0) L 10/29/17 00:20 [place] % (Auto) 1.0 % (0.0-10.0) 10/29/17 00:20 Eos % (Auto) 0.0 % (0.0-4.0) 10/29/17 00:20 Baso % (Auto) 0.0 % (0.0-2.0) 10/29/17 00:20 Neut # (Auto) 12.4 K/uL (1.8-7.0) H 10/29/17 00:20 Lymph # (Auto) 1.0 K/uL (1.0-4.3) 10/29/17 00:20 [place] # (Auto) 0.1 K/uL (0.0-0.8) 10/29/17 00:20 Eos # (Auto) 0.0 K/uL (0.0-0.7) 10/29/17 00:20 Baso # (Auto) 0.0 K/uL (0.0-0.2) 10/29/17 00:20 Neutrophils % (Manual) 86 % (42-75) H 10/29/17 00:20 Band Neutrophils % 1 % (0-2) 10/29/17 00:20 Lymphocytes % (Manual) 13 % (20-50) L 10/29/17 00:20 Monocytes % (Manual) 0 % (0-10) 10/29/17 00:20 Platelet Estimate Normal (NORMAL) 10/29/17 00:20 Hypochromasia (manual) Slight 10/29/17 00:20 Anisocytosis (manual) Slight 10/29/17 00:20 Sodium 143 mmol/l (132-148) 10/30/17 06:25 Potassium 4.4 MMOL/L (3.6-5.0) 10/30/17 06:25 Chloride 105 mmol/L (98-107) 10/30/17 06:25 Carbon Dioxide 26 mmol/L (22-30) 10/30/17 06:25 Anion Gap 16 (10-20) 10/30/17 06:25 BUN 15 mg/dl (9-20) 10/30/17 06:25 Creatinine 0.8 mg/dl (0.8-1.5) 10/30/17 06:25 Est GFR ( Amer) > 60 10/30/17 06:25 Est GFR (Non-Af Amer) > 60 10/30/17 06:25 Random Glucose 101 mg/dL (75-110) 10/30/17 06:25 Lactic Acid 2.4 MMOL/L (0.7-2.1) H 10/29/17 03:13 Calcium 9.0 mg/dL (8.4-10.2) 10/30/17 06:25 Total Bilirubin 0.4 mg/dl (0.2-1.3) 10/29/17 00:20 AST 24 U/L (17-59) 10/29/17 00:20 ALT 49 U/L (21-72) 10/29/17 00:20 Alkaline Phosphatase 64 U/L (38-126) 10/29/17 00:20 Total Protein 7.9 G/DL (6.3-8.2) 10/29/17 00:20 Albumin 4.2 g/dL (3.5-5.0) 10/29/17 00:20 Globulin 3.7 gm/dL (2.2-3.9) 10/29/17 00:20 Albumin/Globulin Ratio 1.1 (1.0-2.1) 10/29/17 00:20 Procalcitonin < 0.05 NG/ML (0.19-0.49) L 10/29/17 07:49 Urine Color Yellow (YELLOW) 10/29/17 06:15 Urine Clarity Clear (Clear) 10/29/17 06:15 Urine pH 7.0 (5.0-8.0) 10/29/17 06:15 Ur Specific [place] 1.010 (1.003-1.030) 10/29/17 06:15 Urine Protein Negative mg/dL (NEGATIVE) 10/29/17 06:15 Urine Glucose (UA) 50 mg/dL (Normal) 10/29/17 06:15 Urine Ketones Negative mg/dL (NEGATIVE) 10/29/17 06:15 Urine Blood Negative (NEGATIVE) 10/29/17 06:15 Urine Nitrate Negative (NEGATIVE) 10/29/17 06:15 Urine Bilirubin Negative (NEGATIVE) 10/29/17 06:15 Urine Urobilinogen 0.2-1.0 mg/dL (0.2-1.0) 10/29/17 06:15 Ur Leukocyte Esterase Neg Pasqu[place]/uL (Negative) 10/29/17 06:15 Urine RBC (Auto) 3 /hpf (0-3) 10/29/17 06:15 Urine Microscopic WBC < 1 /hpf (0-5) 10/29/17 06:15 HIV 1&2 Ag/Ab, 4th Gen Nonreactive (Nonreactive) 10/29/17 12:11 Discharge Exam - Head Exam Head Exam: ATRAUMATIC, NORMAL INSPECTION, NORMOCEPHALIC Discharge Plan - Discharge Medications Prescriptions: Naproxen [Naprosyn] 500 mg PO BID PRN #15 tablet PRN Reason: Pain, Moderate (4-7) Ondansetron [Zofran Odt] 4 mg PO Q8H PRN #15 odt PRN Reason: Nausea/Vomiting - Follow Up Plan Condition: STABLE Disposition: HOME/ ROUTINE Instructions: Migraine Headache (DC), Valproic Acid and Derivatives Referrals: [facility] [place] [Outside]
--- NOTE | 2017-10-30 10:10 | CP.PCM.PN ---
Subjective - Date & Time of Evaluation Date of Evaluation: 10/30/17 Time of Evaluation: 10:07 - Subjective Subjective: Mr. Kurtz was seen and examined at the bedside. He is alert, oriented in all spheres. He denies any headache, but claims of experiencing headache early this morning. He denies any blurred vision, dizziness, weakness, nausea, or vomiting. He is able to move all extremities. There was no untoward events overnight. Objective - Vital Signs/Intake and Output Vital Signs (last 24 hours): Temp Pulse Resp BP Pulse Ox 97.6 F 61 18 109/68 96 10/30/17 08:30 10/30/17 08:30 10/30/17 08:30 10/30/17 08:30 10/30/17 08:30 - Medications Medications: Current Medications Acetaminophen (Tylenol 325mg Tab) 650 mg PO Q6 PRN PRN Reason: Pain, Mild (1-3) Alprazolam (Xanax) 0.5 mg PO Q12 PRN PRN Reason: Anxiety Diphenhydramine HCl (Benadryl) 50 mg PO DAILY [facility] Last Admin: 10/30/17 09:17 Dose: 50 mg Valproate Sodium 750 mg/ (Sodium Chloride) 107.5 mls @ 107.5 mls/hr IVPB Q12 [facility] Ketorolac Tromethamine (Toradol) 15 mg IVP Q6 PRN PRN Reason: Pain, moderate (4-7) Last Admin: 10/29/17 10:27 Dose: 15 mg Magnesium Oxide (Mag-Ox) 400 mg PO DAILY [facility] Last Admin: 10/30/17 09:16 Dose: 400 mg Metoclopramide HCl (Reglan) 10 mg IVP Q8 PRN PRN Reason: Nausea/Vomiting Morphine Sulfate (Morphine) 2 mg IVP Q4 PRN PRN Reason: Pain, severe (8-10) Last Admin: 10/30/17 07:22 Dose: 2 mg Pyridoxine HCl (Vitamin B6) 25 mg PO DAILY [facility] Last Admin: 10/30/17 09:16 Dose: 25 mg Senna/Docusate Sodium (Senokot S 50 Mg-8.6 Mg) 2 tab PO HS [facility] Topiramate (Topamax) 100 mg PO BID [facility] Last Admin: 10/30/17 09:17 Dose: 100 mg - Labs Labs: 10/30/17 06:25 10/30/17 06:25 - Constitutional Appears: No Acute Distress - Head Exam Head Exam: NORMAL INSPECTION - Neurological Exam Neurological Exam: Alert, Awake, Oriented x3 Neuro motor strength exam: Left Upper Extremity: 5, Right Upper Extremity: 5, Left Lower Extremity: 5, Right Lower Extremity: 5 Additional comments: He is alert, oriented x3, follows simple commands. Assessment and Plan (1) Migraine Assessment & Plan: Case discussed with Dr. Frazier, continue all current medical regimen. Recommend to follow up with his own neurologist upon discharge, may take magnesium oxide 200 mg PO BID and botox for his migraine. Pending MRI results. Status: Acute
--- NOTE | 2017-10-30 11:04 | MRI ---
PROCEDURE: MRI BRAIN WITH AND WITHOUT CONTRAST HISTORY: migraine COMPARISON: Unenhanced head CT 10/29/2017 and prior brain MRI 05/03/2010. TECHNIQUE: Multiplanar, multisequence MR images of the brain were obtained with and without intravenous contrast enhancement (Omniscan 50 cc). FINDINGS: HEMORRHAGE: Chronic hemosiderin deposition is seen in the small focus at the superior left nakita/left cerebral peduncle once again. 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 Prior hemorrhage on related to AV recalled AVM has a possibility as well. DWI: No evidence of an acute or early subacute infarction. BRAIN PARENCHYMA: Scattered multifocal limited white matter abnormalities are reiterated primarily at the subcortical bilateral frontal lobes white-matter and the bilateral parietal lobes minimally. Corpus callosum remains normal in appearance and intrinsic signal. Prior signal changes at the right thalamus/posterior basal ganglia appear to have resolved and a chronic lacune is again seen at the right nakita anteriorly. Corticomedullary differentiation is well preserved and there is no mass-effect. The extra-axial spaces remain diffusely unremarkable. No definitive signal abnormality is seen throughout the cerebrum. ENHANCEMENT: Following intravenous contrast administration, there is a probable small developmental venous anomaly identified at the upper medial right basal ganglia. No additional abnormal enhancement is appreciated. VENTRICLES: Unremarkable. No hydrocephalus. CRANIUM: Unremarkable. ORBITS: Grossly unremarkable. PARANASAL SINUSES/MASTOIDS: Clear VASCULAR SYSTEM: Skull base flow voids intact. OTHER FINDINGS: None . IMPRESSION: 1. Nonenhancing limited white-matter changes are appreciate the bilateral frontal and parietal lobes which are not dramatically changed in the interval compared to prior MRI from 2009. The pattern is nonspecific but could be due to headaches or hypertension. Demyelination, vasculitis and other infectious or inflammatory causes are not excluded completely. 2. Stable trace hemosiderin left cerebral peduncle/upper nakita unchanged. Post gadolinium enhancement at the superior right basal ganglia appears to represent a developmental venous anomaly. Concordant preliminary report from [facility], 10/29/2017.
--- NOTE | 2017-10-30 12:45 | CP.PCM.DIS ---
Provider - Provider Date of Admission: 10/28/17 16:50 Attending physician: Nina Ye MD Hospital Course - Lab Results Lab Results: Micro Results 10/29/17 01:43 Urine Urine Culture - Final Gram Negative [place] 10/29/17 00:20 Blood Blood Culture - Preliminary NO GROWTH AFTER 24 HOURS Most Recent Lab Values WBC 9.6 K/uL (4.8-10.8) 10/30/17 06:25 RBC 4.19 Mil/uL (4.40-5.90) L 10/30/17 06:25 Hgb 12.2 g/dL (12.0-18.0) 10/30/17 06:25 Hct 36.6 % (35.0-51.0) 10/30/17 06:25 MCV 87.3 fl (80.0-94.0) 10/30/17 06:25 MCH 29.1 pg (27.0-31.0) 10/30/17 06:25 MCHC 33.3 g/dL (33.0-37.0) 10/30/17 06:25 RDW 13.8 % (11.5-14.5) 10/30/17 06:25 Plt Count 197 K/uL (130-400) 10/30/17 06:25 MPV 10.3 fl (7.2-11.7) 10/29/17 00:20 Neut % (Auto) 91.4 % (50.0-75.0) H 10/29/17 00:20 Lymph % (Auto) 7.6 % (20.0-40.0) L 10/29/17 00:20 [place] % (Auto) 1.0 % (0.0-10.0) 10/29/17 00:20 Eos % (Auto) 0.0 % (0.0-4.0) 10/29/17 00:20 Baso % (Auto) 0.0 % (0.0-2.0) 10/29/17 00:20 Neut # (Auto) 12.4 K/uL (1.8-7.0) H 10/29/17 00:20 Lymph # (Auto) 1.0 K/uL (1.0-4.3) 10/29/17 00:20 [place] # (Auto) 0.1 K/uL (0.0-0.8) 10/29/17 00:20 Eos # (Auto) 0.0 K/uL (0.0-0.7) 10/29/17 00:20 Baso # (Auto) 0.0 K/uL (0.0-0.2) 10/29/17 00:20 Neutrophils % (Manual) 86 % (42-75) H 10/29/17 00:20 Band Neutrophils % 1 % (0-2) 10/29/17 00:20 Lymphocytes % (Manual) 13 % (20-50) L 10/29/17 00:20 Monocytes % (Manual) 0 % (0-10) 10/29/17 00:20 Platelet Estimate Normal (NORMAL) 10/29/17 00:20 Hypochromasia (manual) Slight 10/29/17 00:20 Anisocytosis (manual) Slight 10/29/17 00:20 Sodium 143 mmol/l (132-148) 10/30/17 06:25 Potassium 4.4 MMOL/L (3.6-5.0) 10/30/17 06:25 Chloride 105 mmol/L (98-107) 10/30/17 06:25 Carbon Dioxide 26 mmol/L (22-30) 10/30/17 06:25 Anion Gap 16 (10-20) 10/30/17 06:25 BUN 15 mg/dl (9-20) 10/30/17 06:25 Creatinine 0.8 mg/dl (0.8-1.5) 10/30/17 06:25 Est GFR ( Amer) > 60 10/30/17 06:25 Est GFR (Non-Af Amer) > 60 10/30/17 06:25 Random Glucose 101 mg/dL (75-110) 10/30/17 06:25 Lactic Acid 2.4 MMOL/L (0.7-2.1) H 10/29/17 03:13 Calcium 9.0 mg/dL (8.4-10.2) 10/30/17 06:25 Total Bilirubin 0.4 mg/dl (0.2-1.3) 10/29/17 00:20 AST 24 U/L (17-59) 10/29/17 00:20 ALT 49 U/L (21-72) 10/29/17 00:20 Alkaline Phosphatase 64 U/L (38-126) 10/29/17 00:20 Total Protein 7.9 G/DL (6.3-8.2) 10/29/17 00:20 Albumin 4.2 g/dL (3.5-5.0) 10/29/17 00:20 Globulin 3.7 gm/dL (2.2-3.9) 10/29/17 00:20 Albumin/Globulin Ratio 1.1 (1.0-2.1) 10/29/17 00:20 Procalcitonin < 0.05 NG/ML (0.19-0.49) L 10/29/17 07:49 Urine Color Yellow (YELLOW) 10/29/17 06:15 Urine Clarity Clear (Clear) 10/29/17 06:15 Urine pH 7.0 (5.0-8.0) 10/29/17 06:15 Ur Specific [place] 1.010 (1.003-1.030) 10/29/17 06:15 Urine Protein Negative mg/dL (NEGATIVE) 10/29/17 06:15 Urine Glucose (UA) 50 mg/dL (Normal) 10/29/17 06:15 Urine Ketones Negative mg/dL (NEGATIVE) 10/29/17 06:15 Urine Blood Negative (NEGATIVE) 10/29/17 06:15 Urine Nitrate Negative (NEGATIVE) 10/29/17 06:15 Urine Bilirubin Negative (NEGATIVE) 10/29/17 06:15 Urine Urobilinogen 0.2-1.0 mg/dL (0.2-1.0) 10/29/17 06:15 Ur Leukocyte Esterase Neg Pasquale/uL (Negative) 10/29/17 06:15 Urine RBC (Auto) 3 /hpf (0-3) 10/29/17 06:15 Urine Microscopic WBC < 1 /hpf (0-5) 10/29/17 06:15 HIV 1&2 Ag/Ab, 4th Gen Nonreactive (Nonreactive) 10/29/17 12:11 Discharge Exam - Head Exam Head Exam: NORMAL INSPECTION Discharge Plan - Discharge Medications Prescriptions: Acetaminophen [Tylenol 325mg tab] 650 mg PO Q6 PRN #30 tab PRN Reason: Pain, Mild (1-3) Magnesium Oxide [Mag-Ox] 400 mg PO DAILY #30 tab Naproxen [Naprosyn] 500 mg PO BID PRN #15 tablet PRN Reason: Pain, Moderate (4-7) Ondansetron [Zofran Odt] 4 mg PO Q8H PRN #15 odt PRN Reason: Nausea/Vomiting Pyridoxine [Vitamin B6] 25 mg PO DAILY #30 tab - Follow Up Plan Condition: STABLE Disposition: HOME/ ROUTINE Instructions: Migraine Headache (DC), Valproic Acid and Derivatives Referrals: [facility] [place] [Outside]
[2017-10-30 16:31] VITALS: BP 105/67; PULSE 71; TEMP 98.4
[2017-10-30] MEDS ORDERED: Docusate-Senna 50 mg-8.6 mg Tab PO SCH (22:00)
[2017-11-04 16:46] VITALS: O2SAT 97
== END 2017-10-30 16:30 | disposition home or self-care (01) ==
LOC: H.ER 08:30 → H.ERHOLD 16:50 → H.MEDSURG1 18:15
PROVIDERS: ADMIT Family Medicine Geriatric Medicine; ATTEND Family Medicine Geriatric Medicine
DX: G43.119 Migraine with aura, intractable, without status migrainosus (principal); F41.9 Anxiety disorder, unspecified; Z86.73 Personal history of transient ischemic attack (TIA), and cerebral infarction without residual deficits
CPT/HCPCS: 36415; 70450; 70553; 71045; 80048; 80053; 81003; 83605; 84145; 85025; 85027; 87040; 87086; 87389; 96361; 96365; 96366; 96367; 96375; 96376; 99285; A9579; G0378; J1100; J1200; J1885; J2270; J2405; J2550; J7040

== ENCOUNTER 2018-03-26 20:48 | Emergency (ER) | payer MEDICAID, OTHER ==
[2018-03-26 21:33] VITALS: O2SAT 97
[2018-03-26] MEDS ORDERED: Sodium Chloride 0.9% 1,000 ML IV STA (22:01)
[2018-03-26] MEDS ORDERED: DiphenhydrAMINE 50 mg/ml Inj IVP STA (22:04)
--- NOTE | 2018-03-26 22:28 | ED PDOC ---
HPI: Headache Time Seen by Provider: 03/26/18 21:44 Chief Complaint (Nursing): Headache Chief Complaint (Provider): Headache History Per: Patient History/Exam Limitations: no limitations Onset/Duration Of Symptoms: Days (x3) Current Symptoms Are (Timing): Still Present Additional Complaint(s): 32 y/o male with a PMHx of TIA and migraine presents to the ED complaining of a migraine headache, starting 3 days ago. Patient reports pain has persisted despite fioricet as prescribed by PMD. Patient states pain is associated with vomiting, photophobia, nausea and myalgia. Patient reports pain and associated symptoms are similar to previous migraine headaches. Patient additionally reports that approximately two weeks ago, he began taking Amivog to control migraines. Patient states medication is not working. In the past, patient reports he would receive botox injections for relief of pain. However, insurance no longer paid for injections so he therefore stopped getting them. PMD: No Provider Neurologist: Karlee Treviño ([facility]) Past Medical History Reviewed: Historical Data, Nursing Documentation, Vital Signs Vital Signs: Last Vital Signs Temp 99.1 F 03/26/18 21:33 Pulse 100 H 03/26/18 21:33 Resp 16 03/26/18 21:33 BP 122/81 03/26/18 21:33 Pulse Ox 97 03/26/18 21:33 - Medical History PMH: Anxiety, Migraine, TIA Denies: Chronic Kidney Disease - Surgical History Surgical History: Appendectomy - Family History Family History: States: Stroke - Social History Current smoker - smoking cessation education provided: No Alcohol: Social Drugs: Denies - Home Medications Home Medications: Ambulatory Orders Medication Instructions Recorded Magnesium Oxide 200 mg PO BID #30 tablet 10/30/17 Pyridoxine [Vitamin B6] 25 mg PO DAILY 30 Days #30 tab 10/30/17 Topiramate [Topamax] 100 mg PO BID #30 tab 10/30/17 - Allergies Allergies/Adverse Reactions: Allergies Allergy/AdvReac Type Severity Reaction Status Date / Time No Known Allergies Allergy Verified 10/28/17 08:49 Review of Systems ROS Statement: Except As Marked, All Systems Reviewed And Found Negative (as per HPI) Constitutional: Positive for: Other (myalgia and photophobia) Gastrointestinal: Positive for: Nausea, Vomiting Neurological: Positive for: Headache Physical Exam - Reviewed Nursing Documentation Reviewed: Yes Vital Signs Reviewed: Yes - Physical Exam Appears: Positive for: In Acute Distress (mild, painful) Head Exam: Positive for: ATRAUMATIC, NORMOCEPHALIC Skin: Positive for: Warm, Dry Eye Exam: Positive for: EOMI, PERRL ENT: Negative for: Pharyngeal Erythema, Tonsillar Exudate Neck: Positive for: Painless ROM, Supple Cardiovascular/Chest: Positive for: Regular Rate, Rhythm, Chest Non Tender. Negative for: Murmur Respiratory: Positive for: Normal Breath Sounds. Negative for: Wheezing Gastrointestinal/Abdominal: Positive for: Soft. Negative for: Tenderness Back: Positive for: Normal Inspection. Negative for: Decreased ROM Extremity: Positive for: Normal ROM. Negative for: Deformity Lymphatic: Negative for: Adenopathy Neurologic/Psych: Positive for: Alert, sail repairer II-XII (intact), Oriented (x3), Cerebellar Tests (normal), Other (Normal speech). Negative for: Motor/Sensory Deficits - Laboratory Results Result Diagrams: 03/26/18 23:00 03/26/18 23:00 - ECG O2 Sat by Pulse Oximetry: 97 (RA) Pulse Ox Interpretation: Normal Medical Decision Making Medical Decision Making: Time: 2203 Impression: Intractable Migraine Headache Plan: -- Alcohol Serum -- CMP -- Urine Drug Screen -- Magnesium -- Phosphorus -- ED Urine Dipstick -- CBC with differentials -- Benadryl 25 mg IVP -- Sodium Chloride IV 999 mls/hr -- Reglan 10 mg IVP -- Toradol 30 mg IVP -- Tylenol 975 mg PO 12am Endorsed to Dr Kam pending workup, reeval and final ER disposition Scribe Attestation: Documented by Adrian Garsia acting as a scribe for Tabitha King MD. Provider Scribe Attestation: All medical record entries made by the Scribe were at my direction and personally dictated by me. I have reviewed the chart and agree that the record accurately reflects my personal performance of the history, physical exam, medical decision making, and the department course for this patient. I have also personally directed, reviewed, and agree with the discharge instructions and disposition. Disposition - Clinical Impression Clinical Impression: Migraine - Disposition Disposition Time: 00:00 Condition: STABLE Patient Signed Over To: Jan Kam
[2018-03-26] MEDS ORDERED: DiphenhydrAMINE 50 mg/ml Inj ONE (23:09)
--- NOTE | 2018-03-27 00:16 | ED PDOC ---
- Laboratory Results Result Diagrams: 03/26/18 23:00 03/26/18 23:00 - ECG O2 Sat by Pulse Oximetry: 97 (RA) Medical Decision Making Medical Decision Makin:00 -Patient endorsed to provider by Dr. King, pending reevaluation. At 3AM pt reports no further headache and is stable upon discharge Disposition - Clinical Impression Clinical Impression: Migraine - POA Present On Arrival: None - Disposition Disposition: Routine/Home Disposition Time: 03:00 Condition: STABLE Instructions: Migraine Headaches in Adults Forms: [facility] (Swedish), [facility] ED School/Work Excuse
[2018-03-27] MEDS ORDERED: Magnesium Sulfate 2 gm/50 ml 2 GM/50 ML BAG IV STA (00:23)
[2018-03-27] MEDS ORDERED: Valproate 500 MG in Sodium Chloride 0.9% 100 ML IVPB ONE (00:23)
[2018-03-27] MEDS ORDERED: Dexamethasone 4 mg/1 ml IV ONE (00:26)
[2018-03-27] MEDS ORDERED: Dexamethasone 4 mg/1 ml ONE (00:32)
[2018-03-27] MEDS ORDERED: Valproate Sodium 500 mg Inj ONE (00:32)
[2018-03-27] MEDS ORDERED: Magnesium Sulfate 2 gm/50 ml 2 GM/50 ML BAG ONE (00:32)
[2018-03-27 01:04] LABS: BASO % 0.3 % (0.0-2.0); EOS % 0.4 % (0.0-4.0); HEMOGLOBIN 13.3 g/dL (12.0-18.0); LYMPH # 2.3 K/uL (1.0-4.3); LYMPH % 18.6 % (20.0-40.0); MEAN CELL VOLUME 85.1 fl (80.0-94.0); MEAN CORPUSCULAR HEMOGLOBIN 29.3 pg (27.0-31.0); MEAN CORPUSCULAR HGB CONC 34.4 g/dL (33.0-37.0); MEAN PLATELET VOLUME 10.6 fl (7.2-11.7); MONO # 0.8 K/uL (0.0-0.8); MONO % 6.2 % (0.0-10.0); NEUT # 9.2 K/uL (1.8-7.0); NEUT % 74.5 % (50.0-75.0); RBC 4.53 Mil/uL (4.40-5.90); RED CELL DISTRIBUTION WIDTH 13.2 % (11.5-14.5); WHITE BLOOD COUNT 12.3 K/uL (4.8-10.8)
[2018-03-27] MEDS ORDERED: DiphenhydrAMINE 50 mg/ml Inj ONE (01:09)
[2018-03-27] MEDS ORDERED: DiphenhydrAMINE 50 mg/ml Inj IV STA (01:14)
[2018-03-27 01:19] LABS: BLOOD UREA NITROGEN 9 mg/dl (9-20); CALCIUM 9.5 mg/dL (8.4-10.2); GFR NON-AFRICAN AMERICAN > 60
[2018-03-27 01:21] LABS: ALB/GLOB RATIO 1.1 (1.0-2.1); ALBUMIN 4.5 g/dL (3.5-5.0); ALT/SGPT 29 U/L (21-72); AST/SGOT 50 U/L (17-59)
[2018-03-27 01:28] LABS: BARBITURATES, UR POSITIVE (NEGATIVE); BENZODIAZEPINES, UR POSITIVE (NEGATIVE); OPIATES, UR NEGATIVE (NEGATIVE); PHENCYCLIDINE, UR NEGATIVE (NEGATIVE)
[2018-03-27 03:26] VITALS: BP 123/76; PULSE 81; RESP 18; TEMP 98.1
== END 2018-03-27 03:20 | disposition home or self-care (01) ==
LOC: H.ER 20:48
DX: G43.919 Migraine, unspecified, intractable, without status migrainosus (principal); Z86.73 Personal history of transient ischemic attack (TIA), and cerebral infarction without residual deficits
CPT/HCPCS: 80053; 80320; 80324; 80345; 80346; 80349; 80353; 80358; 80361; 83735; 83992; 84100; 85025; 96365; 96368; 96375; 99285; J1100; J1200; J1885; J2765; J7030

== ENCOUNTER 2018-04-27 15:01 | Observation (INO) | payer OTHER ==
[2018-04-27] MEDS ORDERED: Sodium Chloride 0.9% 1,000 ML IV STA (15:38)
--- NOTE | 2018-04-27 15:49 | ED PDOC ---
HPI: Headache Time Seen by Provider: 04/27/18 15:17 Chief Complaint (Nursing): Headache Chief Complaint (Provider): headache History Per: Patient History/Exam Limitations: no limitations Onset/Duration Of Symptoms: Days (x2) Associated Symptoms: Photophobia Additional Complaint(s): Umer Kurtz, a 33 year old male with no significant past medical history, presents to the emergency department with a migraine headache onset 2 days. Patient states he took excedrin and topamax without relief. He reports it is a typical migraine associated with photophobia but denies nausea, vomiting, neck stiffness, paresthesia or weakness. Patient is followed by neurologist in [place]. No further medical complaints. Past Medical History Reviewed: Historical Data, Nursing Documentation, Vital Signs Vital Signs: Last Vital Signs Temp 99.1 F 04/27/18 15:08 Pulse 88 04/27/18 15:08 Resp 16 04/27/18 15:08 BP 110/74 04/27/18 15:08 Pulse Ox 99 04/27/18 15:08 - Medical History PMH: Anxiety, Migraine, TIA Denies: Chronic Kidney Disease - Surgical History Surgical History: Appendectomy - Family History Family History: States: Unknown Family Hx, Stroke - Home Medications Home Medications: Ambulatory Orders Medication Instructions Recorded Magnesium Oxide 200 mg PO BID #30 tablet 10/30/17 Pyridoxine [Vitamin B6] 25 mg PO DAILY 30 Days #30 tab 10/30/17 Topiramate [Topamax] 100 mg PO BID #30 tab 10/30/17 - Allergies Allergies/Adverse Reactions: Allergies Allergy/AdvReac Type Severity Reaction Status Date / Time No Known Allergies Allergy Verified 10/28/17 08:49 Review of Systems ROS Statement: Except As Marked, All Systems Reviewed And Found Negative Gastrointestinal: Negative for: Nausea, Vomiting Musculoskeletal: Negative for: Other (neck stiffness, paresthesia) Neurological: Positive for: Headache (associated with photophobia). Negative for: Weakness Physical Exam - Reviewed Nursing Documentation Reviewed: Yes Vital Signs Reviewed: Yes - Physical Exam Appears: Positive for: Well, Non-toxic, No Acute Distress Head Exam: Positive for: ATRAUMATIC, NORMAL INSPECTION, NORMOCEPHALIC Skin: Positive for: Normal Color, Warm, DRY Eye Exam: Positive for: EOMI, Normal appearance, PERRL ENT: Positive for: Normal ENT Inspection Neck: Positive for: Normal, Painless ROM Cardiovascular/Chest: Positive for: Regular Rate, Rhythm Respiratory: Positive for: CNT, Normal Breath Sounds Gastrointestinal/Abdominal: Positive for: Normal Exam, Soft Back: Positive for: Normal Inspection Extremity: Positive for: Normal ROM Neurologic/Psych: Positive for: Alert, Oriented - ECG O2 Sat by Pulse Oximetry: 99 (RA) Medical Decision Making Medical Decision Making: Time: 15:17 Workup: Initial Plan: --CMP --CBC w/ differential --Sodium chloride 1000 ml IV --Toradol 15 mg IV Scribe Attestation: Documented by Kamila Rebollar, acting as a scribe for Sarah Vo MD. Provider Scribe Attestation: All medical record entries made by the Scribe were at my direction and personally dictated by me. I have reviewed the chart and agree that the record accurately reflects my personal performance of the history, physical exam, medical decision making, and the department course for this patient. I have also personally directed, reviewed, and agree with the discharge instructions and disposition. Disposition - Disposition
[2018-04-27 16:34] LABS: BASO % 0.2 % (0.0-2.0); EOS # 0.1 K/uL (0.0-0.7); EOS % 1.1 % (0.0-4.0); LYMPH # 2.7 K/uL (1.0-4.3); LYMPH % 27.3 % (20.0-40.0); MEAN CELL VOLUME 85.4 fl (80.0-94.0); MEAN CORPUSCULAR HEMOGLOBIN 28.8 pg (27.0-31.0); MEAN CORPUSCULAR HGB CONC 33.7 g/dL (33.0-37.0); MEAN PLATELET VOLUME 9.5 fl (7.2-11.7); MONO # 0.6 K/uL (0.0-0.8); MONO % 6.5 % (0.0-10.0); NEUT # 6.4 K/uL (1.8-7.0); NEUT % 64.9 % (50.0-75.0); NRBC % 0.1 % (0.0-0.0); RBC 4.5 Mil/uL (4.40-5.90); RED CELL DISTRIBUTION WIDTH 13.5 % (11.5-14.5); WHITE BLOOD COUNT 9.8 K/uL (4.8-10.8)
[2018-04-27 16:43] LABS: ALB/GLOB RATIO 1.1 (1.0-2.1); ALBUMIN 4.1 g/dL (3.5-5.0); ALT/SGPT 44 U/L (21-72); AST/SGOT 32 U/L (17-59); BLOOD UREA NITROGEN 13 mg/dl (9-20); CALCIUM 9.4 mg/dL (8.4-10.2); GFR NON-AFRICAN AMERICAN > 60
[2018-04-27] MEDS ORDERED: Valproate 500 MG in Sodium Chloride 0.9% 100 ML IVPB STA (17:59)
[2018-04-27] MEDS ORDERED: Dexamethasone 10 MG in Sodium Chloride 0.9% 50 ML IVPB STA (18:00)
[2018-04-27] MEDS ORDERED: Magnesium Sulfate 2 gm/50 ml 2 GM/50 ML BAG IVPB STA (18:00)
[2018-04-27] MEDS ORDERED: Magnesium Sulfate 2 gm/50 ml 2 GM/50 ML BAG ONE (18:09)
[2018-04-27] MEDS ORDERED: Ketamine 50 mg/ml Inj (10 ml) IV STA (21:14)
[2018-04-27] MEDS ORDERED: SODIUM CHLORIDE 0.9% IV ONE (21:45)
[2018-04-27] MEDS ORDERED: KETAMINE IV ONE (21:45)
[2018-04-27] MEDS ORDERED: Ketamine 50 mg/ml Inj (10 ml) IV ONE (23:00)
--- NOTE | 2018-04-27 23:23 | CP.PCM.HP ---
<Edson Em - Last Filed: 04/27/18 23:26> History of Present Illness - History of Present Illness History of Present Illness: 33 y/o M with a PMHx of Migraine, minor stroke at age 30 and meningitis at age 26, presented to ED this morning due to severe headache. Headache is described a s pulsatile as his head is going to explode, bi-frontal, constant, began last night, took Excedrin and Fioricet with NO improvement, associated with photophobia, phonophobia and weakness. At this moment, pain is 6-7/10 from being 9-10/10 this morning and after medications given in ED. Pt reports no nausea or vomiting during this current episode. Pt reports when this severe headache episode occurs, it usually last between 4-6 days. Pt reports having 2-3 headache per week, and using Excedrin for with relief. Pt denies aura, fall, head trauma, cough, SOB, sinus pain, chest pain, confusion, seizure activity, weakness, numbness, confusion, weight loss, rash or blurry vision . -Pt was receiving Botox treatment until 2 months ago when Aimovig was initiated, last dose 04/23/18 (2nd dose). -Pt has been admitted for severe migraine 6 months ago. PMD: None Neurologist: Dr Kamila DEWEY Meds: Exedrin Migraine PRN, Fioricet PRN, Aimovig once a month. -PMHX: Migraine x 4 years, Minor stroke 3 years ago, Meningitis in 2010, Anxiety. -PSHx: Appendectomy, Rhinoplasty 3 months ago -FHx: Father with HTN and DM. Mother with DM. No Fhx/o migraine. -SHx: Ocassional alcohol, no rec drugs, no tobacco At ED: --CBC adn CMP were unremarkable. --IV NSS bolus --Toradol 15mg, Morphine 2mg, Mg Sulfate 2gr, Decadron 10mg, Valproate 500mg were administered. --Ketamine currently being administered. Present on Admission - Present on Admission Any Indicators Present on Admission: No History of DVT/PE: No Review of Systems - Constitutional Constitutional: Headache. absent: Anorexia, Fever, Frequent Falls - EENT Eyes: absent: Blind Spots, Discharge, Dry Eye, Itchy Eyes Ears: absent: Decreased Hearing, Tinnitus Nose/Mouth/Throat: absent: Nasal Congestion, Nasal Discharge, Dysphagia, Neck Pain - Cardiovascular Cardiovascular: absent: Chest Pain, Dyspnea, Palpitations - Respiratory Respiratory: absent: Cough, Dyspnea, Hemoptysis, Wheezing - Gastrointestinal Gastrointestinal: absent: Abdominal Pain, Diarrhea, Nausea, Vomiting - Genitourinary Genitourinary: absent: Dysuria, Flank Pain, Hematuria, Nocturia - Musculoskeletal Musculoskeletal: absent: Joint Swelling, Numbness, Stiffness, Tingling - Neurological Neurological: Headaches. absent: Abnormal Hearing, Abnormal Movements, Behavioral Changes, Burning Sensations, Confusion, Numbness, Focal Weakness, Frequent Falls, Syncope, Tingling Past Patient History - Past Medical History & Family History Past Medical History?: Yes - Past Social History Smoking Status: Never Smoked Alcohol: Occasional Drugs: Denies - CARDIAC Hx Cardiac Disorders: No - PULMONARY Hx Respiratory Disorders: No - NEUROLOGICAL Hx Migraine: Yes Hx Transient Ischemic Attacks (TIA): Yes - HEENT Hx HEENT Problems: No - RENAL Hx Chronic Kidney Disease: No - ENDOCRINE/METABOLIC Hx Endocrine Disorders: No - HEMATOLOGICAL/ONCOLOGICAL Hx Blood Disorders: No - INTEGUMENTARY Hx Dermatological Problems: No - MUSCULOSKELETAL/RHEUMATOLOGICAL Hx Musculoskeletal Disorders: No Hx Falls: No - GASTROINTESTINAL Hx Gastrointestinal Disorders: No - GENITOURINARY/GYNECOLOGICAL Hx Genitourinary Disorders: No - PSYCHIATRIC Hx Anxiety: Yes - SURGICAL HISTORY Hx Appendectomy: Yes - ANESTHESIA Hx Anesthesia: Yes Hx Anesthesia Reactions: No Meds Allergies/Adverse Reactions: Allergies Allergy/AdvReac Type Severity Reaction Status Date / Time No Known Allergies Allergy Verified 10/28/17 08:49 Physical Exam - Constitutional Appears: No Acute Distress Additional comments: with sunglasses, with lights off in ED room. - Head Exam Head Exam: ATRAUMATIC, NORMAL INSPECTION, NORMOCEPHALIC - Eye Exam Eye Exam: EOMI, Normal appearance, PERRL - ENT Exam ENT Exam: Mucous Membranes Moist - Neck Exam Neck exam: Positive for: Full Rom, Normal Inspection. Negative for: Meningismus - Respiratory Exam Respiratory Exam: Clear to Auscultation Bilateral, NORMAL BREATHING PATTERN - Cardiovascular Exam Cardiovascular Exam: REGULAR RHYTHM, +S1, +S2 - GI/Abdominal Exam GI & Abdominal Exam: Normal Bowel Sounds, Soft. absent: Distended, Guarding, Rebound, Tenderness - Extremities Exam Extremities exam: Positive for: full ROM. Negative for: calf tenderness - Back Exam Back exam: absent: CVA tenderness (L) - Neurological Exam Neurological exam: Alert, CN II-XII Intact, Oriented x3 Results - Vital Signs Recent Vital Signs: Last Vital Signs Temp 99.1 F 04/27/18 15:08 Pulse 88 04/27/18 15:08 Resp 16 04/27/18 15:08 BP 110/74 04/27/18 15:08 Pulse Ox 99 04/27/18 15:52 - Labs Result Diagrams: 04/27/18 16:10 04/27/18 16:10 Labs: Laboratory Results - last 24 hr 04/27/18 04/27/18 16:10 16:10 WBC 9.8 RBC 4.50 Hgb 13.0 Hct 38.4 MCV 85.4 MCH 28.8 MCHC 33.7 RDW 13.5 Plt Count 180 MPV 9.5 Neut % (Auto) 64.9 Lymph % (Auto) 27.3 Dare % (Auto) 6.5 Eos % (Auto) 1.1 Baso % (Auto) 0.2 Neut # (Auto) 6.4 Lymph # (Auto) 2.7 Dare # (Auto) 0.6 Eos # (Auto) 0.1 Baso # (Auto) 0.0 Sodium 136 Potassium 3.7 Chloride 102 Carbon Dioxide 28 Anion Gap 10 BUN 13 Creatinine 0.7 L Est GFR ( Amer) > 60 Est GFR (Non-Af Amer) > 60 Random Glucose 102 Calcium 9.4 Total Bilirubin 0.2 AST 32 ALT 44 Alkaline Phosphatase 70 Total Protein 7.8 Albumin 4.1 Globulin 3.7 Albumin/Globulin Ratio 1.1 Assessment & Plan - Assessment and Plan (Free Text) Assessment: 33 y/o M with a PMHx of Migraine, ?TIA, Meningitis and Anxiety is admitted for evaluation and management of intractable headache 1. Headache, Migraine without aura --Acute on chronic, slowly improving, s/p Morphine, Toradol, Valproate, Decadron and Magnessium Sulfate. --Neurology Consult, Dr Wayne --C/w IV Ketamine drip --Toradol 30mg Q6H PRN 2. Hx of ?TIA --Last Head CT on 10/29/17 showed NO intracranial abnormality. --Last Brain MRI on 10/30/17, non-enhancing limited white changes on b/l frontal areas, see full report on [facility], results non-specific. 3. Anxiety --Currently not taking any med for this matter as per patient. 3. Prophylaxis --Early ambulation if tolerated --SCD PRN - Date & Time Date: 04/28/18 Time: 23:23 <Hector Hermosillo Daria - Last Filed: 04/28/18 02:53> Results - Vital Signs Recent Vital Signs: Last Vital Signs Temp 97.8 F 04/28/18 01:48 Pulse 82 04/28/18 01:48 Resp 16 04/28/18 01:48 BP 133/76 04/28/18 01:48 Pulse Ox 100 04/28/18 01:48 - Labs Result Diagrams: 04/27/18 16:10 04/27/18 16:10 Labs: Laboratory Results - last 24 hr 04/27/18 04/27/18 16:10 16:10 WBC 9.8 RBC 4.50 Hgb 13.0 Hct 38.4 MCV 85.4 MCH 28.8 MCHC 33.7 RDW 13.5 Plt Count 180 MPV 9.5 Neut % (Auto) 64.9 Lymph % (Auto) 27.3 Dare % (Auto) 6.5 Eos % (Auto) 1.1 Baso % (Auto) 0.2 Neut # (Auto) 6.4 Lymph # (Auto) 2.7 Dare # (Auto) 0.6 Eos # (Auto) 0.1 Baso # (Auto) 0.0 Sodium 136 Potassium 3.7 Chloride 102 Carbon Dioxide 28 Anion Gap 10 BUN 13 Creatinine 0.7 L Est GFR ( Amer) > 60 Est GFR (Non-Af Amer) > 60 Random Glucose 102 Calcium 9.4 Total Bilirubin 0.2 AST 32 ALT 44 Alkaline Phosphatase 70 Total Protein 7.8 Albumin 4.1 Globulin 3.7 Albumin/Globulin Ratio 1.1 Attending/Attestation - Attestation I have personally seen and examined this patient.: Yes I have fully participated in the care of the patient.: Yes I have reviewed all pertinent clinical information: Yes Notes (Text): 04/28/18 02:37 I saw, examined and discussed this patient with Dr. Em. I agree with his assessment and plan. This is a 33 years old male with hx of Anxiety, Cerebral infarct recognized on Head CT, and Migraine, now with 2 days of migraine not relieved with Fioricet nor Excedrin. In the ED low dose Toradol, Morphine, Decadron and Magnesium sulfate were also unsuccessful in relieving the headache. Neurology Dr Tone patterson ecommended Ketamine IV infusion. We will also use a higher dose of Toradol and Ativan for anxiety. Hector Hermosillo MD
[2018-04-28] MEDS ORDERED: SODIUM CHLORIDE 0.9% IV ONE
[2018-04-28] MEDS ORDERED: KETAMINE IV ONE
[2018-04-28 12:21] VITALS: BP 111/65; PULSE 96; RESP 16; TEMP 97.5; O2SAT 100
--- NOTE | 2018-04-28 12:30 | CP.PCM.CON ---
History of Present Illness - History of Present Illness History of Present Illness: Neurology Consultation Note: Mr. Kurtz is a 33-year-old man with a past medical history of meningitis in 2010, subsequent migraine headaches and questionable history of ischemic stroke in the past who was recently admitted for intractable migraine in October 2017, and presented again yesterday with severe headaches that were refractory to all first line medications, but resolved with ketamine infusion. Currently, the patient states that his headache is gone. Review of Systems - Constitutional Constitutional: Headache - EENT Eyes: absent: As Per HPI, Blind Spots, Blurred Vision, Change in Vision, Decreased Night Vision, Diplopia, Discharge, Dry Eye, Exophthalmos, Floaters, Irritation, Itchy Eyes, Loss of Peripheral Vision, Pain, Photophobia, Requires Corrective Lenses, Sees Flashes, Spots in Vision, Tunnel Vision, Other Visual Disturbances, Loss of Vision, Other Ears: absent: As Per HPI, Decreased Hearing, Ear Discharge, Ear Pain, Tinnitus, Abnormal Hearing, Disequilibrium, Dizziness, Other Nose/Mouth/Throat: absent: As Per HPI, Epistaxis, Nasal Congestion, Nasal Discharge, Nasal Obstruction, Nasal Trauma, Nose Pain, Post Nasal Drip, Sinus Pain, Sinus Pressure, Bleeding Gums, Change in Voice, Dental Pain, Dry Mouth, Dysphagia, Halitosis, Hoarsness, Lip Swelling, Mouth Lesions, Mouth Pain, Odynophagia, Sore Throat, Throat Swelling, Tongue Swelling, Facial Pain, Neck Pain, Neck Mass, Other - Cardiovascular Cardiovascular: absent: As Per HPI, Acrocyanosis, Chest Pain, Chest Pain at Rest, Chest Pain with Activity, Claudication, Diaphoresis, Dyspnea, Dyspnea on Exertion, Edema, Irregular Heart Rhythm, Pain Radiating to Arm/Neck/Jaw, Leg Edema, Leg Ulcers, Lightheadedness, Orthopnea, Palpitations, Paroxysmal Noctu rnal Dyspnea, Pedal Edema, Radiating Pain, Rapid Heart Rate, Slow Heart Rate, Syncope, Other - Respiratory Respiratory: absent: As Per HPI, Cough, Dyspnea, Hemoptysis, Dyspnea on Exertion, Wheezing, Snoring, Stridor, Pain on Inspiration, Chest Congestion, Excessive Mucous Production, Change in Mucous Color, Pain with Coughing, Other - Gastrointestinal Gastrointestinal: absent: As Per HPI, Abdominal Pain, Belching, Bloating, Change in Bowel Habits, Change in Stool Character, Coffee Ground Emesis, Constipation, Cramping, Diarrhea, Dyspepsia, Dysphagia, Early Satiety, Excessive Flatus, Fecal Incontinence, Heartburn, Hematemesis, Hematochezia, Loose Stools, Melena, Nausea, Odynophagia, Temesmus, Vomiting, Other - Genitourinary Genitourinary: absent: As Per HPI, Change in Urinary Stream, Difficulty Urinating, Dysuria, Flank Pain, Hematuria, Pyuria, Nocturia, Urinary Incontine nce, Urinary Frequency, Urinary Hesitance, Urinary Urgency, Voiding Freq/Small Amts, Freq UTI, Hx Renal/Bladder Calculi, Hx /Renal Surgery, Bladder Distension, Other - Musculoskeletal Musculoskeletal: absent: As Per HPI, Abnormal Gait, Arthralgias, Atrophy, Back Pain, Deformity, Joint Swelling, Limited Range of Motion, Loss of Height, Muscle Cramps, Muscle Weakness, Myalgias, Neck Pain, Numbness, Radiating Pain into Limb, Stiffness, Tingling, Other - Integumentary Integumentary: absent: As Per HPI, Acne, Alopecia, Bleeding Lesions, Change in Hair, Change in Nails, Change in Pigmentation, Changing Lesions, Dry Skin, Erythema, Furuncle, Hirsutism, Lesions, New Lesions, Non-Healing Lesions, Photosensitivity, Pruritus, Rash, Skin Pain, Skin Ulcer, Sores, Striae, Swelling, Unusual Bruising, Wounds, Jaundice, Other - Neurological Neurological: As Per HPI - Psychiatric Psychiatric: absent: As Per HPI, Abnormal Sleep Pattern, Anhedonia, Anxiety, Auditory Hallucinations, Behavioral Changes, Change in Appetite, Change in Libido, Confusion, Depression, Difficulty Concentrating, Hallucinations, Homicidal Ideation, Hopelessness, Irritability, Memory Loss, Mood Swings, Panic Attacks, Paranoia, Suicidal Ideation, Visual Hallucinations, Tactile Hallucinations, Other - Endocrine Endocrine: absent: As Per HPI, Change in Body Appearance, Change in Libido, Cold Intolorance, Deepening of Voice, Excessive Sweating, Fatigue, Flushing, Heat Intolorance, Increase in Ring/Shoe/Hat Size, Palpitations, Polydipsia, Polyphagia, Polyuria, Other - Hematologic/Lymphatic Hematologic: absent: As Per HPI, Easy Bleeding, Easy Bruising, Lymphadenopathy, Other Past Patient History - Past Medical History & Family History Past Medical History?: Yes - Past Social History Smoking Status: Former Smoker - CARDIAC Hx Cardiac Disorders: No - PULMONARY Hx Respiratory Disorders: No - NEUROLOGICAL Hx Migraine: Yes Hx Transient Ischemic Attacks (TIA): Yes - HEENT Hx HEENT Problems: No - RENAL Hx Chronic Kidney Disease: No - ENDOCRINE/METABOLIC Hx Endocrine Disorders: No - HEMATOLOGICAL/ONCOLOGICAL Hx Blood Disorders: No Hx AIDS: No Hx Human Immunodeficiency Virus (HIV): No - INTEGUMENTARY Hx Dermatological Problems: No - MUSCULOSKELETAL/RHEUMATOLOGICAL Hx Musculoskeletal Disorders: No Hx Falls: No - GASTROINTESTINAL Hx Gastrointestinal Disorders: No - GENITOURINARY/GYNECOLOGICAL Hx Genitourinary Disorders: No - PSYCHIATRIC Hx Anxiety: Yes Hx Substance Use: No - SURGICAL HISTORY Hx Appendectomy: Yes Other/Comment: Rhinoplasty - ANESTHESIA Hx Anesthesia: Yes Hx Anesthesia Reactions: No Hx Malignant Hyperthermia: No Has any member of the family had a problem w/ anesthesia?: No Meds Allergies/Adverse Reactions: Allergies Allergy/AdvReac Type Severity Reaction Status Date / Time No Known Allergies Allergy Verified 10/28/17 08:49 - Medications Medications: Current Medications Ketorolac Tromethamine (Toradol) 30 mg IVP Q6 PRN PRN Reason: Headache Physical Exam - Constitutional Appears: Well - Head Exam Head Exam: ATRAUMATIC, NORMAL INSPECTION, NORMOCEPHALIC - Eye Exam Eye Exam: EOMI, Normal appearance, PERRL - ENT Exam ENT Exam: Mucous Membranes Moist, Normal Exam - Neck Exam Neck exam: Positive for: Normal Inspection - Respiratory Exam Respiratory Exam: Clear to Auscultation Bilateral, NORMAL BREATHING PATTERN - Cardiovascular Exam Cardiovascular Exam: REGULAR RHYTHM, +S1, +S2 - GI/Abdominal Exam GI & Abdominal Exam: Normal Bowel Sounds, Soft. absent: Tenderness - Rectal Exam Rectal Exam: Deferred - Neurological Exam Neurological exam: Alert, CN II-XII Intact, Normal Gait, Oriented x3, Reflexes Normal - Psychiatric Exam Psychiatric exam: Normal Affect, Normal Mood - Skin Skin Exam: Dry, Intact, Normal Color, Warm Results - Vital Signs Recent Vital Signs: Last Vital Signs Temp 97.5 F L 04/28/18 12:20 Pulse 96 H 04/28/18 12:20 Resp 16 04/28/18 12:20 BP 111/65 04/28/18 12:20 Pulse Ox 100 04/28/18 12:20 - Labs Result Diagrams: 04/27/18 16:10 04/27/18 16:10 Labs: Laboratory Results - last 24 hr 04/27/18 04/27/18 16:10 16:10 WBC 9.8 RBC 4.50 Hgb 13.0 Hct 38.4 MCV 85.4 MCH 28.8 MCHC 33.7 RDW 13.5 Plt Count 180 MPV 9.5 Neut % (Auto) 64.9 Lymph % (Auto) 27.3 [place] % (Auto) 6.5 Eos % (Auto) 1.1 Baso % (Auto) 0.2 Neut # (Auto) 6.4 Lymph # (Auto) 2.7 [place] # (Auto) 0.6 Eos # (Auto) 0.1 Baso # (Auto) 0.0 Sodium 136 Potassium 3.7 Chloride 102 Carbon Dioxide 28 Anion Gap 10 BUN 13 Creatinine 0.7 L Est GFR ( Amer) > 60 Est GFR (Non-Af Amer) > 60 Random Glucose 102 Calcium 9.4 Total Bilirubin 0.2 AST 32 ALT 44 Alkaline Phosphatase 70 Total Protein 7.8 Albumin 4.1 Globulin 3.7 Albumin/Globulin Ratio 1.1 Assessment & Plan (1) Migraine Assessment and Plan: Will start the patient on magnesium oxide 400 mg BID and propranolol 20 mg BID and follow up in the office. He should avoid all triptans due to previous stroke. Thank you for the consultation and consideration. Status: Acute
--- NOTE | 2018-04-28 13:18 | CP.PCM.DIS ---
<Geno Raza - Last Filed: 04/28/18 14:20> Provider - Provider Date of Admission: 04/27/18 21:23 Attending physician: Hector Hermosillo Primary care physician: unknown, Neurologist- Dr. Treviño ([facility]) Consults: Neurology- Dr. Wayne Time Spent in preparation of Discharge (in minutes): 30 Hospital Course - Lab Results Lab Results: Most Recent Lab Values WBC 9.8 K/uL (4.8-10.8) 04/27/18 16:10 RBC 4.50 Mil/uL (4.40-5.90) 04/27/18 16:10 Hgb 13.0 g/dL (12.0-18.0) 04/27/18 16:10 Hct 38.4 % (35.0-51.0) 04/27/18 16:10 MCV 85.4 fl (80.0-94.0) 04/27/18 16:10 MCH 28.8 pg (27.0-31.0) 04/27/18 16:10 MCHC 33.7 g/dL (33.0-37.0) 04/27/18 16:10 RDW 13.5 % (11.5-14.5) 04/27/18 16:10 Plt Count 180 K/uL (130-400) 04/27/18 16:10 MPV 9.5 fl (7.2-11.7) 04/27/18 16:10 Neut % (Auto) 64.9 % (50.0-75.0) 04/27/18 16:10 Lymph % (Auto) 27.3 % (20.0-40.0) 04/27/18 16:10 [place] % (Auto) 6.5 % (0.0-10.0) 04/27/18 16:10 Eos % (Auto) 1.1 % (0.0-4.0) 04/27/18 16:10 Baso % (Auto) 0.2 % (0.0-2.0) 04/27/18 16:10 Neut # (Auto) 6.4 K/uL (1.8-7.0) 04/27/18 16:10 Lymph # (Auto) 2.7 K/uL (1.0-4.3) 04/27/18 16:10 [place] # (Auto) 0.6 K/uL (0.0-0.8) 04/27/18 16:10 Eos # (Auto) 0.1 K/uL (0.0-0.7) 04/27/18 16:10 Baso # (Auto) 0.0 K/uL (0.0-0.2) 04/27/18 16:10 Sodium 136 mmol/l (132-148) 04/27/18 16:10 Potassium 3.7 MMOL/L (3.6-5.0) 04/27/18 16:10 Chloride 102 mmol/L (98-107) 04/27/18 16:10 Carbon Dioxide 28 mmol/L (22-30) 04/27/18 16:10 Anion Gap 10 (10-20) 04/27/18 16:10 BUN 13 mg/dl (9-20) 04/27/18 16:10 Creatinine 0.7 mg/dl (0.8-1.5) L 04/27/18 16:10 Est GFR ( Amer) > 60 04/27/18 16:10 Est GFR (Non-Af Amer) > 60 04/27/18 16:10 Random Glucose 102 mg/dL (75-110) 04/27/18 16:10 Calcium 9.4 mg/dL (8.4-10.2) 04/27/18 16:10 Total Bilirubin 0.2 mg/dl (0.2-1.3) 04/27/18 16:10 AST 32 U/L (17-59) 04/27/18 16:10 ALT 44 U/L (21-72) 04/27/18 16:10 Alkaline Phosphatase 70 U/L (38-126) 04/27/18 16:10 Total Protein 7.8 G/DL (6.3-8.2) 04/27/18 16:10 Albumin 4.1 g/dL (3.5-5.0) 04/27/18 16:10 Globulin 3.7 gm/dL (2.2-3.9) 04/27/18 16:10 Albumin/Globulin Ratio 1.1 (1.0-2.1) 04/27/18 16:10 - Hospital Course Hospital Course: 33 y/o M with a PMHx of Migraine, 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 Patient described the headache as pulsatile. Patient was seen and evaluated at bedside, and states his symptoms have significantly improved. Patient states the photophobia has subsided. Pt was receiving Botox treatment until 2 months ago when Aimovig was initiated, last dose 04/23/18 (2nd dose). Patient reports improvement in pain post Ketamine drip. Pt denies aura, fall, head trauma, cough, SOB, sinus pain, chest pain, confusion, seizure activity, weakness, numbness, confusion, weight loss, rash or blurry vision. 1. Headache, Migraine without aura -Acute on chronic, improving, s/p Morphine, Toradol, Valproate, Decadron, Magnessium Sulfate and Ketamine Drip -Neurology Consult- As per Dr. Wayne, Start the patient on magnesium oxide 400 mg BID and Propranolol 20 mg BID/follow up in the office, patient to avoid all triptans due to previous stroke. -Patient to follow up with Neurologist, Dr. Treviño -Rx Magnesium Oxide 400 mg BID -Rx Propranolol 20 mg BID 2. Hx of questionable TIA -Last Head CT on 10/29/17 showed NO intracranial abnormality. -Last Brain MRI on 10/30/17, non-enhancing limited white changes on b/l frontal areas, see full report on Handpressions, results non-specific. - Date & Time of H&P Date of H&P: 04/28/18 Time of H&P: 13:19 Discharge Exam - Head Exam Head Exam: ATRAUMATIC, NORMOCEPHALIC - Eye Exam Eye Exam: Normal appearance, PERRL - ENT Exam ENT Exam: Mucous Membranes Moist - Neck Exam Neck exam: Full Rom - Respiratory Exam Respiratory Exam: Clear to PA & Lateral, NORMAL BREATHING PATTERN. absent: Rales, Rhonchi, Wheezes, Stridor - Cardiovascular Exam Cardiovascular Exam: REGULAR RHYTHM, RRR, +S1, +S2. absent: JVD - GI/Abdominal Exam GI & Abdominal Exam: Normal Bowel Sounds, Soft. absent: Distended, Firm, Guarding, Rigid - Extremities Exam Extremities exam: full ROM - Back Exam Back exam: NORMAL INSPECTION. absent: CVA tenderness (L), CVA tenderness (R) - Neurological Exam Neurological exam: Alert, Oriented x3 - Psychiatric Exam Psychiatric exam: Normal Affect, Normal Mood - Skin Skin Exam: Normal Color Discharge Plan - Discharge Medications Prescriptions: Magnesium Oxide 400 mg PO BID #30 tablet Propranolol [Inderal] 20 mg PO BID #30 tab - Follow Up Plan Condition: STABLE Disposition: HOME/ ROUTINE Patient education suggested?: Yes Additional Instructions: Patient to follow up with Neurology upon discharge Clinical Quality Measures - CQM - VTE Did patient receive overlap therapy during hosptialization?: No Is patient being discharged on overlap therapy?: No <Audelia Urrutia - Last Filed: 04/28/18 16:29> Provider - Provider Date of Admission: 04/27/18 21:23 Attending physician: Hector Hermosillo [facility] Course - Lab Results Lab Results: Most Recent Lab Values WBC 9.8 K/uL (4.8-10.8) 04/27/18 16:10 RBC 4.50 Mil/uL (4.40-5.90) 04/27/18 16:10 Hgb 13.0 g/dL (12.0-18.0) 04/27/18 16:10 Hct 38.4 % (35.0-51.0) 04/27/18 16:10 MCV 85.4 fl (80.0-94.0) 04/27/18 16:10 MCH 28.8 pg (27.0-31.0) 04/27/18 16:10 MCHC 33.7 g/dL (33.0-37.0) 04/27/18 16:10 RDW 13.5 % (11.5-14.5) 04/27/18 16:10 Plt Count 180 K/uL (130-400) 04/27/18 16:10 MPV 9.5 fl (7.2-11.7) 04/27/18 16:10 Neut % (Auto) 64.9 % (50.0-75.0) 04/27/18 16:10 Lymph % (Auto) 27.3 % (20.0-40.0) 04/27/18 16:10 Garden % (Auto) 6.5 % (0.0-10.0) 04/27/18 16:10 Eos % (Auto) 1.1 % (0.0-4.0) 04/27/18 16:10 Baso % (Auto) 0.2 % (0.0-2.0) 04/27/18 16:10 Neut # (Auto) 6.4 K/uL (1.8-7.0) 04/27/18 16:10 Lymph # (Auto) 2.7 K/uL (1.0-4.3) 04/27/18 16:10 [place] # (Auto) 0.6 K/uL (0.0-0.8) 04/27/18 16:10 Eos # (Auto) 0.1 K/uL (0.0-0.7) 04/27/18 16:10 Baso # (Auto) 0.0 K/uL (0.0-0.2) 04/27/18 16:10 Sodium 136 mmol/l (132-148) 04/27/18 16:10 Potassium 3.7 MMOL/L (3.6-5.0) 04/27/18 16:10 Chloride 102 mmol/L (98-107) 04/27/18 16:10 Carbon Dioxide 28 mmol/L (22-30) 04/27/18 16:10 Anion Gap 10 (10-20) 04/27/18 16:10 BUN 13 mg/dl (9-20) 04/27/18 16:10 Creatinine 0.7 mg/dl (0.8-1.5) L 04/27/18 16:10 Est GFR ( Amer) > 60 04/27/18 16:10 Est GFR (Non-Af Amer) > 60 04/27/18 16:10 Random Glucose 102 mg/dL (75-110) 04/27/18 16:10 Calcium 9.4 mg/dL (8.4-10.2) 04/27/18 16:10 Total Bilirubin 0.2 mg/dl (0.2-1.3) 04/27/18 16:10 AST 32 U/L (17-59) 04/27/18 16:10 ALT 44 U/L (21-72) 04/27/18 16:10 Alkaline Phosphatase 70 U/L (38-126) 04/27/18 16:10 Total Protein 7.8 G/DL (6.3-8.2) 04/27/18 16:10 Albumin 4.1 g/dL (3.5-5.0) 04/27/18 16:10 Globulin 3.7 gm/dL (2.2-3.9) 04/27/18 16:10 Albumin/Globulin Ratio 1.1 (1.0-2.1) 04/27/18 16:10 Attending/Attestation - Attestation I have personally seen and examined this patient.: Yes I have fully participated in the care of the patient.: Yes I have reviewed all pertinent clinical information, including history, physical exam and plan: Yes
== END 2018-04-28 14:40 | disposition home or self-care (01) ==
LOC: H.ER 15:01 → H.ERHOLD 21:23 → H.TEL 04-28 01:47
PROVIDERS: ADMIT Internal Medicine; ATTEND Internal Medicine
DX: G43.009 Migraine without aura, not intractable, without status migrainosus (principal); F41.9 Anxiety disorder, unspecified
CPT/HCPCS: 80053; 85025; 96361; 96365; 96375; 99285; G0378; J1100; J1885; J2060; J2270; J7030

== ENCOUNTER 2018-11-12 19:41 | Emergency (ER) | payer MEDICAID, OTHER ==
[2018-11-12] MEDS ORDERED: Sodium Chloride 0.9% 1,000 ML IV ONE (20:28)
[2018-11-12] MEDS ORDERED: Apap-Butalbital-Caffeine 325-50-40mg Tab PO STA (20:28)
--- NOTE | 2018-11-12 20:41 | ED PDOC ---
HPI: Headache Time Seen by Provider: 11/12/18 19:53 Chief Complaint (Nursing): Headache Chief Complaint (Provider): Migraine Headache History Per: Patient History/Exam Limitations: no limitations Onset/Duration Of Symptoms: Days (x2) Current Symptoms Are (Timing): Still Present Pain Scale Rating Of: 8 Associated Symptoms: Photophobia, Nausea. denies: Blurred Vision, Vomiting Additional Complaint(s): 33 year old male presents to the ED for an evaluation of worsening frontal headache, onset yesterday. Patient states he suffers from chronic migraines and had a minor stroke 4 years ago. He does not take any blood thinners and currently is under the care of a neurologist. He called his neurologist who was supposed to send a prescription to the pharmacy but did not, therefore prompting a visit to the ED. He reports the headache is associated with nausea, photophobia and phonophobia, rating it 8/10 and describing it as a throbbing, pulsating sensation. He also notes that he gets botox injections for his migrain es. Currently, the headache is similar to migraines in the past. Patient further notes he has not had any imaging of his head in years. Otherwise, patient denies vomiting, neck pain/neck stiffness, numbness, weakness, changes in vision, recent travel, fever, abdominal pain, or slurred speech. Neurologist: Dr. Karlee Grewal ([facility]) PMD: No Family Provider Past Medical History Reviewed: Historical Data, Nursing Documentation, Vital Signs Vital Signs: Last Vital Signs Temp 100 F H 11/12/18 19:48 Pulse 88 11/12/18 19:48 Resp 16 11/12/18 19:48 BP 113/72 11/12/18 19:48 Pulse Ox 96 11/12/18 19:48 - Medical History PMH: Anxiety, CVA (minor ), Migraine, TIA - Surgical History Surgical History: Appendectomy - Family History Family History: States: Stroke - Social History Current smoker - smoking cessation education provided: No Alcohol: Social Drugs: Denies - Home Medications Home Medications: Ambulatory Orders Medication Instructions Recorded Pyridoxine [Vitamin B6] 25 mg PO DAILY 30 Days #30 tab 10/30/17 Magnesium Oxide 400 mg PO BID #30 tablet 04/28/18 Propranolol [Inderal] 20 mg PO BID #30 tab 04/28/18 Acetaminophen/Butalbital/Caf 1 tab PO Q8 PRN #12 tab 11/12/18 [Fioricet] Naproxen 500 mg PO BID PRN #20 tab 11/12/18 - Allergies Allergies/Adverse Reactions: Allergies Allergy/AdvReac Type Severity Reaction Status Date / Time No Known Allergies Allergy Verified 11/12/18 19:52 Review of Systems ROS Statement: Except As Marked, All Systems Reviewed And Found Negative Constitutional: Negative for: Fever Eyes: Positive for: Other (photophobia ). Negative for: Vision Change ENT: Positive for: Other (phonophobia) Gastrointestinal: Positive for: Nausea. Negative for: Vomiting Musculoskeletal: Negative for: Neck Pain, Other (stiff neck ) Neurological: Positive for: Headache. Negative for: Weakness, Numbness, Other (slurred speech ) Physical Exam - Reviewed Nursing Documentation Reviewed: Yes Vital Signs Reviewed: Yes - Physical Exam Comments: GENERAL APPEARANCE: Patient is awake, alert, oriented x 3, in mild painful distress. SKIN: Warm, dry; (-) cyanosis; (-) rash. HEAD: (-) scalp swelling or tenderness, (-) temporal artery tenderness. EYES: (-) conjunctival injection (+) photophobia. ENMT: Airway patent, (-) Stridor. (-) sinus tenderness; mucous membranes are moist. NECK: Supple, FROM (-) tenderness, (-) stiffness, (-) meningismus, (-) lymphadenopathy. CHEST AND RESPIRATORY: (-) rales, (-) rhonchi, (-) wheezes; breath sounds equal bilaterally. Respirations even and nonlabored, speaking in full sentences. HEART AND CARDIOVASCULAR: (-) irregularity ABDOMEN AND GI: Soft; (-) tenderness. EXTREMITIES: (-) deformity. NEURO AND PSYCH: Mental status as above. 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 Strength and sensation symmetric. Gait: steady. Speech: clear. Cerebellar tests intact. - Laboratory Results Result Diagrams: 11/12/18 20:42 11/12/18 20:42 - ECG O2 Sat by Pulse Oximetry: 96 (RA) Pulse Ox Interpretation: Normal Medical Decision Making Medical Decision Making: Time: 2027 Impression: 33yo male with migraine headache Plan: --Head w/o contrast CT --CMP --CBC w/ differential --PTT --INR --Fioricet PO --Normal saline 1000 mls/hr --Reglan 10mg IV --IV insertion --Re-evaluation 2101 EXAM: CT Head Without IV contrast. CLINICAL HISTORY: Headache TECHNIQUE: Axial computed tomography images of the head/brain without intravenous contrast. COMPARISON: None provided. FINDINGS: BRAIN: No acute intraparenchymal hemorrhage. No mass lesion. No CT evidence for acute territorial infarct. No midline shift or extra-axial collections. VENTRICLES: No hydrocephalus. ORBITS: The orbits are unremarkable. SINUSES AND MASTOIDS: The paranasal sinuses and mastoid air cells are clear. BONES: No fracture. SOFT TISSUES: Unremarkable. IMPRESSION: No acute intracranial abnormality. Electronically signed on November 12, 2018 8:58:32 PM EDT by: Wander Tipton M.D., M.B.A., Certified By [employer] Trained MRI and CT Specialist 2199 On re-evaluation, patient reports minimal improvement of symptoms. Toradol 30mg IVP ordered for additional pain control. 2229 Patient seen ambulating to and from the bathroom without difficulty. Per significant other at bedside, patient is acting normal and current symptoms are similar to those in the past of chronic migraines. Labs reviewed and grossly unremarkable. 2299 On re-evaluation, patient reports improvement of symptoms. On exam, patient remains AAOx3, in no acute distress. Neuro exam remains nonfocal. Vitals stable. Lab/Diagnostic results d/w the patient in great detail. Diagnosis of migraine headache d/w the patient. Based on history, exam and diagnostic results, plan will be for outpatient follow up neurology. Patient reports he has an appt on 11/18/18 with his neurologist. Patient instructed to follow-up with pmd / referral provided / the clinic in 1- 2 days without fail. Advised to take medication as prescribed. Return to the emergency room at any time for any new or worsening symptoms. Patient states he fully agrees with and understands discharge instructions. States that he agrees with the plan and disposition. Verbalized and repeated discharge instructions and plan. I have given the patient opportunity to ask any additional questions. Scribe Attestation: Documented by Michael Guzman, acting as a scribe for Danyelle Campoverde PA-C. Provider Scribe Attestation: All medical record entries made by the Scribe were at my direction and personally dictated by me. I have reviewed the chart and agree that the record accurately reflects my personal performance of the history, physical exam, medical decision making, and the department course for this patient. I have also personally directed, reviewed, and agree with the discharge instructions and disposition. Disposition - Clinical Impression Clinical Impression: Migraine headache, Photophobia of both eyes, Nausea alone - Patient ED Disposition Is Patient to be Admitted: No Counseled Patient/Family Regarding: Studies Performed, Diagnosis, Need For Followup, Rx Given - Disposition Referrals: your, neurologist [Other] Errol Wayne MD [Medical Doctor] - Disposition: Routine/Home Disposition Time: 23:00 Condition: STABLE Additional Instructions: The emergency medical care you received today was directed at your acute symptoms. If you were prescribed any medication, please fill it and take as directed. It may take several days for your symptoms to resolve. Return to the Emergency Department if your symptoms worsen, do not improve, or if you have any other problems. Please contact your doctor in 2 days for re-evaluation and follow up / or call one of the physicians/clinics you have been referred to that are listed on the Patient Visit Information form that is included in your discharge packet. Bring any paperwork you were given at discharge with you along with any medications you are taking to your follow up visit. Our treatment cannot replace ongoing medical care by a primary care provider (PCP) outside of the emergency department. Prescriptions: Acetaminophen/Butalbital/Caf [Fioricet] 1 tab PO Q8 PRN #12 tab PRN Reason: Headache Naproxen 500 mg PO BID PRN #20 tab PRN Reason: Headache Instructions: Nausea and Vomiting, Adult (DC), Migraine Headaches in Adults Forms: [employer] ([place]), [facility] ED School/Work Excuse Print Language: CZECH - POA Present On Arrival: None Results - Diagnostic Imaging Results Radiology Results Head CT 11/12/18 20:28 IMPRESSION: Unremarkable unenhanced head CT. Concordant preliminary report from Ron, 11/12/2018, 8:58 p.m.. - Lab Results Lab Results: 11/12/18 11/12/18 11/12/18 20:42 20:42 20:42 WBC 10.7 RBC 4.39 L Hgb 12.9 Hct 37.8 MCV 86.0 MCH 29.5 MCHC 34.3 RDW 13.2 Plt Count 184 MPV 9.9 Neut % (Auto) 79.4 H Lymph % (Auto) 14.9 L [place] % (Auto) 5.3 Eos % (Auto) 0.2 Baso % (Auto) 0.2 Neut # (Auto) 8.5 H Lymph # (Auto) 1.6 [place] # (Auto) 0.6 Eos # (Auto) 0.0 Baso # (Auto) 0.0 PT 12.2 INR 1.1 APTT 35.4 Sodium 133 Potassium 3.9 Chloride 95 L Carbon Dioxide 27 Anion Gap 15 BUN 12 Creatinine 0.8 Est GFR ( Amer) > 60 Est GFR (Non-Af Amer) > 60 Random Glucose 108 Calcium 8.7 Total Bilirubin 0.5 AST 37 ALT 46 Alkaline Phosphatase 65 Total Protein 7.7 Albumin 4.5 Globulin 3.2 Albumin/Globulin Ratio 1.4
[2018-11-12 20:49] LABS: BASO % 0.2 % (0.0-2.0); EOS % 0.2 % (0.0-4.0); HEMOGLOBIN 12.9 g/dL (12.0-18.0); LYMPH # 1.6 K/uL (1.0-4.3); LYMPH % 14.9 % (20.0-40.0); MEAN CORPUSCULAR HEMOGLOBIN 29.5 pg (27.0-31.0); MEAN CORPUSCULAR HGB CONC 34.3 g/dL (33.0-37.0); MEAN PLATELET VOLUME 9.9 fl (7.2-11.7); MONO # 0.6 K/uL (0.0-0.8); MONO % 5.3 % (0.0-10.0); NEUT # 8.5 K/uL (1.8-7.0); NEUT % 79.4 % (50.0-75.0); NRBC % 0.1 % (0.0-0.0); RBC 4.39 Mil/uL (4.40-5.90); RED CELL DISTRIBUTION WIDTH 13.2 % (11.5-14.5); WHITE BLOOD COUNT 10.7 K/uL (4.8-10.8)
[2018-11-12 20:50] LABS: INR 1.1; PROTHROMBIN TIME 12.2 Seconds (9.8-13.1)
[2018-11-12 20:53] LABS: PARTIAL THROMBOPLASTIN TIME 35.4 Seconds (25.6-37.1)
[2018-11-12] MEDS ORDERED: Apap-Butalbital-Caffeine 325-50-40mg Tab ONE (20:54)
[2018-11-12 20:58] LABS: ALB/GLOB RATIO 1.4 (1.0-2.1); ALBUMIN 4.5 g/dL (3.5-5.0); ALT/SGPT 46 U/L (21-72); AST/SGOT 37 U/L (17-59); BLOOD UREA NITROGEN 12 mg/dl (9-20); CALCIUM 8.7 mg/dL (8.4-10.2); GFR NON-AFRICAN AMERICAN > 60
[2018-11-13 00:14] VITALS: RESP 18; TEMP 98.8
[2018-11-13 00:15] VITALS: BP 121/69; PULSE 72
--- NOTE | 2018-11-13 10:20 | CT ---
Date of service: 11/12/2018 PROCEDURE: CT HEAD WITHOUT CONTRAST. HISTORY: headache COMPARISON: Unenhanced head CT 10/29/2017. TECHNIQUE: Axial computed tomography images were obtained through the head/brain without intravenous contrast. Radiation dose: Total exam DLP = 889.76 mGy-cm. This CT exam was performed using one or more of the following dose reduction techniques: Automated exposure control, adjustment of the mA and/or kV according to patient size, and/or use of iterative reconstruction technique. FINDINGS: HEMORRHAGE: No intracranial hemorrhage. BRAIN: Normal aguilar-white matter differentiation and density are appreciated throughout the cerebrum and cerebellum with the brainstem appearing unremarkable as well. There is no mass effect. There is no suspicious extra-axial fluid collection and the midline brain anatomy appears diffusely unremarkable. VENTRICLES: Unremarkable. No hydrocephalus. CALVARIUM: Unremarkable. PARANASAL SINUSES: Unremarkable as visualized. No significant inflammatory changes. MASTOID AIR CELLS: Unremarkable as visualized. No inflammatory changes. OTHER FINDINGS: None. IMPRESSION: Unremarkable unenhanced head CT. Concordant preliminary report from CLAUDIARad, 11/12/2018, 8:58 p.m..
[2018-11-13 16:10] VITALS: O2SAT 96
== END 2018-11-12 23:30 | disposition home or self-care (01) ==
LOC: H.ER 19:41
DX: G43.909 Migraine, unspecified, not intractable, without status migrainosus (principal); H53.149 Visual discomfort, unspecified; R11.0 Nausea; Z86.73 Personal history of transient ischemic attack (TIA), and cerebral infarction without residual deficits
CPT/HCPCS: 70450; 80053; 85025; 85610; 85730; 96374; 96375; 99284; J1885; J2765; J7040